=== PATIENT | female | born 1935 | race Caucasian/White ===

== ENCOUNTER → 2016-06-24 | Outpatient (CLI) | payer MEDICARE ==
--- NOTE | 2016-06-24 11:12 | US ---
EXAMINATION TYPE: US abdomen complete DATE OF EXAM: 06/24/2016 9:48 AM COMPARISON: Correlation CT chest 07/12/2012 CLINICAL HISTORY: 81-year-old female R10.13 Epigastric Pain. TECHNIQUE: Multiple sonographic images of the abdomen were obtained. FINDINGS: TECHNOLOGIST NOTES: Extensive midline bowel gas obscuring structures Liver Length: 15.1 cm Gallbladder Wall: 0.2 cm CBD: 0.3 cm Spleen: 8.4 cm Right Kidney: 10.2 x 4.1 x 4.8 cm Left Kidney: 10.6 x 5.1 x 4.9 cm Pancreas: Only a small portion of the pancreatic body is seen. Remainder suboptimally visualized seco ndary to shadowing from bowel gas. Liver: Normal size with homogeneous echotexture. There is a 1 cm cyst in the left hepatic lobe demon strating a single internal septation. Gallbladder: No abnormal gallbladder distention, wall thickening, pericholecystic fluid, or shadowing calculi. CBD: wnl Spleen: wnl Right Kidney: Some contour lobulations. No hydronephrosis. Left Kidney: Some contour lobulations. No hydronephrosis. Upper IVC: wnl Abd Aorta: bifurcation obscured by bowel gas IMPRESSION: 1. A 1 cm minimally complex left hepatic lobe cyst which appears to have been present on the 2013 CT scan. 2. Suboptimal visualization of the pancreas. Otherwise, unremarkable sonographic examination of the a bdomen.
--- NOTE | 2016-06-24 11:18 | US ---
EXAMINATION TYPE: US pelvic complete DATE OF EXAM: 06/24/2016 9:53 AM COMPARISON: NONE CLINICAL HISTORY: 81-year-old female with R10.13 Epigastric Pain. Date of LMP: 81 year old post menopausal patient TECHNIQUE: Transabdominal (TA) FINDINGS: Uterus: Anteverted measuring 7.6 x 2.3 x 3.9 cm Endometrial Stripe: 0.4 cm, within normal limits. Right Ovary: 1.5 x x 0.7 x 0.6 cm for volume of 0.3 mL. Left Ovary: not visualized cm No evident adnexal abnormality or cul-de-sac free fluid. IMPRESSION: 1. A 4 mm thick endometrial stripe, within normal limits. 2. Normal small postmenopausal right ovary. The left ovary could not be visualized. 3. No pelvic free fluid.
== END | disposition home or self-care (01) ==
LOC: RADUSWWP 08:58
PROVIDERS: ATTEND Family Medicine
DX: R10.13 Epigastric pain (principal); Z88.2 Allergy status to sulfonamides
CPT/HCPCS: 76700; 76856

== ENCOUNTER 2019-03-18 10:17 | Inpatient (IN) | payer MEDICARE ==
[2019-03-18] MEDS ORDERED: NITROGLYCERIN OINT 1 INCH/GM PACKET TOPICAL STA (10:26)
--- NOTE | 2019-03-18 10:32 | ED ---
General Adult HPI - General Chief complaint: Fall Stated complaint: chest pain Source: patient, RN/MD, EMS, RN notes reviewed Mode of arrival: EMS Limitations: no limitations - History of Present Illness Initial comments: Patient is a pleasant 83-year-old female presenting to the emergency Department with complaints of fall and chest discomfort. Patient was walking into a rest [employer] when she fell and struck her face. Patient did have nasal surgery just a month ago. Patient is unclear whether or not she may have lost consciousness for a second after she fell. Patient complains of discomfort of her upper teeth and nose. Patient does have a mild headache as well. After the fall patient started developing some pressure in her chest. Discomfort improved with nitro and is currently 5/10. Patient does have some associated dyspnea. No nausea. Patient feels sweaty. No leg pain or leg swelling. No history of similar symptoms previously. No history of cardiac disease. - Related Data Home Medications Medication Instructions Recorded Confirmed Cyanocobalamin (Vitamin B-12) 1,000 mcg PO DAILY 03/18/19 03/18/19 [Vitamin B-12] Multivitamins, Thera [Multivitamin 1 tab PO DAILY 03/18/19 03/18/19 (formulary)] Sinus Miracle 1 tab PO DAILY PRN 03/18/19 03/18/19 Allergies Allergy/AdvReac Type Severity Reaction Status Date / Time Sulfa (Sulfonamide Allergy Anaphylaxis Verified 03/18/19 11:58 Antibiotics) Review of Systems ROS Statement: Those systems with pertinent positive or pertinent negative responses have been documented in the HPI. ROS Other: All systems not noted in ROS Statement are negative. Constitutional: Denies: fever Eyes: Denies: eye pain ENT: Denies: ear pain Respiratory: Reports: dyspnea. Denies: cough Cardiovascular: Reports: chest pain Endocrine: Denies: fatigue Gastrointestinal: Denies: abdominal pain Genitourinary: Denies: dysuria Musculoskeletal: Denies: back pain Skin: Denies: rash Neurological: Reports: as per HPI, headache. Denies: weakness, confusion Past Medical History Past Medical History: No Reported History History of Any Multi-Drug Resistant Organisms: None Reported Additional Past Surgical History / Comment(s): Mastectomy with lymphnode remova right side Past Psychological History: No Psychological Hx Reported Smoking Status: Never smoker Past Alcohol Use History: None Reported Past Drug Use History: None Reported General Exam Limitations: no limitations General appearance: alert, in no apparent distress Head exam: Present: atraumatic, normocephalic Eye exam: Present: normal appearance, PERRL, EOMI. Absent: nystagmus ENT exam: Present: other (Abrasions and tenderness to the nose and upper lip. Teeth are all stable.) Neck exam: Present: normal inspection. Absent: tenderness Respiratory exam: Present: normal lung sounds bilaterally. Absent: chest wall tenderness Cardiovascular Exam: Present: regular rate, normal rhythm Expanded Peripheral pulses: 2+: Radial (R), Radial (L), Dorsalis Pedis (R), Dorsalis Pedis (L) GI/Abdominal exam: Present: soft. Absent: distended, tenderness Extremities exam: Present: normal inspection. Absent: pedal edema, calf tenderness Neurological exam: Present: alert, oriented X3, CN II-XII intact. Absent: motor sensory deficit Psychiatric exam: Present: normal affect, normal mood Skin exam: Present: abrasion (Nose and upper lip) Course Vital Signs 03/18/19 03/18/19 03/18/19 10:20 10:32 10:52 Temperature 97.8 F Pulse Rate 75 71 Respiratory 16 18 Rate Blood Pressure 114/69 140/80 O2 Sat by Pulse 96 100 Oximetry 03/18/19 03/18/19 11:00 11:38 Temperature Pulse Rate 75 76 Respiratory 23 Rate Blood Pressure 136/84 120/79 O2 Sat by Pulse 99 Oximetry - Reevaluation(s) Reevaluation #1: 03/18/19 10:30 Case was discussed with Dr. Velarde, who will come evaluate patient. 03/18/19 10:35 I did review EKG as well as EMS EKGs with Dr. Velarde who agrees there is not concern for STEMI. EKG Findings - EKG Comments: EKG Findings:: Normal sinus rhythm 72. AR 168. QRS 90. QT 400. QTc 438. Left axis. Left anterior fascicular block. Nonspecific ST-T Procedures - Laceration Laceration #1 Consent Obtained: verbal consent Indication: laceration Site: lip Description: linear Depth: simple, single layer Anesthetic Used: lidocaine 1% Amount (mls): 2 Type of Sutures: vicryl Size of Sutures: 5-0 Number of Sutures: 3 Technique: simple, interrupted Patient Tolerated Procedure: well, no complications Medical Decision Making - Medical Decision Making Patient reevaluated and updated. [facility] physician group paged for admission covering for Dr. Mason. Patient is still having some discomfort of her chest and questions if it is just from landing on her chest when she fell. Patient is being held for cardiac evaluation and rule out and monitoring. Patient has not been admitted secondary to any trauma concerns. - Lab Data Result diagrams: 03/18/19 10:28 03/18/19 10: Lab Results 03/18/19 03/18/19 03/18/19 Range/Units 10:28 10:28 10:28 WBC 5.6 (3.8-10.6) k/uL RBC 4.12 (3.80-5.40) m/uL Hgb 13.2 (11.4-16.0) gm/dL Hct 40.2 (34.0-46.0) % MCV 97.5 (80.0-100.0) fL MCH 32.1 (25.0-35.0) pg MCHC 32.9 (31.0-37.0) g/dL RDW 12.7 (11.5-15.5) % Plt Count 275 (150-450) k/uL Neutrophils % 60 % Lymphocytes % 24 % Monocytes % 8 % Eosinophils % 5 % Basophils % 0 % Neutrophils # 3.4 (1.3-7.7) k/uL Lymphocytes # 1.4 (1.0-4.8) k/uL Monocytes # 0.4 (0-1.0) k/uL Eosinophils # 0.3 (0-0.7) k/uL Basophils # 0.0 (0-0.2) k/uL PT 10.1 (9.0-12.0) sec INR 0.9 (<1.2) APTT 23.1 (22.0-30.0) sec Sodium 139 (137-145) mmol/L Potassium 3.9 (3.5-5.1) mmol/L Chloride 108 H (98-107) mmol/L Carbon Dioxide 24 (22-30) mmol/L Anion Gap 7 mmol/L BUN 11 (7-17) mg/dL Creatinine 0.67 (0.52-1.04) mg/dL Est GFR (CKD-EPI)AfAm >90 (>60 ml/min/1.73 sqM) Est GFR (CKD-EPI)NonAf 82 (>60 ml/min/1.73 sqM) Glucose 104 H (74-99) mg/dL Calcium 10.6 H (8.4-10.2) mg/dL Magnesium 2.2 (1.6-2.3) mg/dL Total Bilirubin 0.7 (0.2-1.3) mg/dL AST 20 (14-36) U/L ALT 15 (4-34) U/L Alkaline Phosphatase 80 (38-126) U/L Creatine Kinase 36 (30-135) U/L Troponin I (0.000-0.034) ng/mL Total Protein 6.7 (6.3-8.2) g/dL Albumin 3.8 (3.5-5.0) g/dL 03/18/19 Range/Units 10:28 WBC (3.8-10.6) k/uL RBC (3.80-5.40) m/uL Hgb (11.4-16.0) gm/dL Hct (34.0-46.0) % MCV (80.0-100.0) fL MCH (25.0-35.0) pg MCHC (31.0-37.0) g/dL RDW (11.5-15.5) % Plt Count (150-450) k/uL Neutrophils % % Lymphocytes % % Monocytes % % Eosinophils % % Basophils % % Neutrophils # (1.3-7.7) k/uL Lymphocytes # (1.0-4.8) k/uL Monocytes # (0-1.0) k/uL Eosinophils # (0-0.7) k/uL Basophils # (0-0.2) k/uL PT (9.0-12.0) sec INR (<1.2) APTT (22.0-30.0) sec Sodium (137-145) mmol/L Potassium (3.5-5.1) mmol/L Chloride (98-107) mmol/L Carbon Dioxide (22-30) mmol/L Anion Gap mmol/L BUN (7-17) mg/dL Creatinine (0.52-1.04) mg/dL Est GFR (CKD-EPI)AfAm (>60 ml/min/1.73 sqM) Est GFR (CKD-EPI)NonAf (>60 ml/min/1.73 sqM) Glucose (74-99) mg/dL Calcium (8.4-10.2) mg/dL Magnesium (1.6-2.3) mg/dL Total Bilirubin (0.2-1.3) mg/dL AST (14-36) U/L ALT (4-34) U/L Alkaline Phosphatase (38-126) U/L Creatine Kinase (30-135) U/L Troponin I <0.012 (0.000-0.034) ng/mL Total Protein (6.3-8.2) g/dL Albumin (3.5-5.0) g/dL - Radiology Data Radiology results: report reviewed (Computed tomography scan of the brain shows atrophy. Posttraumatic change is not identified. Air-fluid level right maxillary sinus could be related with sinusitis or posttraumatic. CT facial bones shows no fractures. Possible fullness fossa of rosenmuller. Air-fluid level right maxillary sinus.), image reviewed (Chest x-ray shows no acute process. Hiatal hernia. Cardiac silhouette is mildly enlarged.) Disposition Clinical Impression: Fall, Lip laceration, Chest pain Disposition: ADMITTED IP TO THIS HOSP Is patient prescribed a controlled substance at d/c from ED?: No Referrals: None,Stated [Primary Care Provider] - 1-2 days Decision Time: 12:36
[2019-03-18 10:41] LABS: Basophils % (A) 0 %; Eosinophils # (A) 0.3 k/uL (0-0.7); Eosinophils % (A) 5 %; HCT 40.2 % (34.0-46.0); HGB 13.2 gm/dL (11.4-16.0); Lymphocytes # (A) 1.4 k/uL (1.0-4.8); Lymphocytes % (A) 24 %; MCH 32.1 pg (25.0-35.0); MCHC 32.9 g/dL (31.0-37.0); MCV 97.5 fL (80.0-100.0); Mean Platelet Volume 7.6; Monocytes # (A) 0.4 k/uL (0-1.0); Monocytes % (A) 8 %; Neutrophils # (A) 3.4 k/uL (1.3-7.7); Neutrophils % (A) 60 %; Platelet Count 275 k/uL (150-450); RBC 4.12 m/uL (3.80-5.40); RDW 12.7 % (11.5-15.5); WBC 5.6 k/uL (3.8-10.6)
[2019-03-18 10:50] LABS: ALT 15 U/L (4-34); AST 20 U/L (14-36); African American GFR (CKD) >90 (>60 ml/min/1.73 sqM); Albumin 3.8 g/dL (3.5-5.0); Alkaline Phosphatase 80 U/L (38-126); Anion Gap 7 mmol/L; Blood Urea Nitrogen 11 mg/dL (7-17); Calcium 10.6 mg/dL (8.4-10.2); Carbon Dioxide 24 mmol/L (22-30); Chloride 108 mmol/L (98-107); Creatine Kinase 36 U/L (30-135); Glucose 104 mg/dL (74-99); Magnesium 2.2 mg/dL (1.6-2.3); Non-African American GFR(CKD) 82 (>60 ml/min/1.73 sqM); Potassium 3.9 mmol/L (3.5-5.1); Sodium 139 mmol/L (137-145); Total Bilirubin 0.7 mg/dL (0.2-1.3); Total Protein 6.7 g/dL (6.3-8.2)
--- NOTE | 2019-03-18 10:51 | CT ---
EXAMINATION TYPE: CT brain wo con DATE OF EXAM: 03/18/2019 COMPARISON: INDICATION: Fall with facial trauma DLP: 1373.6 mGycm, Automated exposure control for dose reduction was used. CONTRAST: None CT of the brain is performed utilizing 3 mm thick sections through the posterior fossa and 3 mm thick sections through the remaining calvarium. Study is performed within 24 hours of arrival to the hosp ital. No abnormal hyperdensity is present to suggest an acute intracranial hemorrhage. No mass lesion is evident. No acute infarcts are evident. . Periventricular white matter hypodensity is present, likely on the b asis of chronic white matter ischemic changes. Ventricles and sulci are appropriate for the patient age. There is a small air-fluid level within the right maxillary sinus. Remaining paranasal sinuses and ma stoid air cells are clear. Clinical consideration for acute right maxillary sinusitis is recommended. This could be posttraumatic. No acute fractures are within the [id number] however. Note is made o f hyperostosis frontalis internus, normal variant. IMPRESSIONS: 1. Periventricular white matter ischemic changes and age-related atrophy. 2. Acute posttraumatic change is not identified. 3. Air-fluid level within the right maxillary sinus can be posttraumatic, acute sinusitis is within t he differential.
--- NOTE | 2019-03-18 10:52 | XR ---
EXAMINATION TYPE: XR chest 1V portable DATE OF EXAM: 03/18/2019 COMPARISON: 07/11/2012 HISTORY: Syncope TECHNIQUE: Single frontal view of the chest is obtained. FINDINGS: There is no focal air space opacity, pleural effusion, or pneumothorax seen. There is a la rge hiatal hernia increase in size from the prior. Surrounding atelectasis is seen. The cardiac silh ouette size is mildly enlarged. The osseous structures are intact. IMPRESSION: Increasing size of a large hiatal hernia. No acute cardiopulmonary process.
[2019-03-18 10:58] LABS: INR 0.9 (<1.2); Partial Thromboplastin Time 23.1 sec (22.0-30.0); Prothrombin Time 10.1 sec (9.0-12.0)
--- NOTE | 2019-03-18 11:15 | CT ---
EXAMINATION TYPE: CT facial bones wo con DATE OF EXAM: 03/18/2019 COMPARISON: None HISTORY: Fall with facial trauma CT DLP: 1373.6 mGycm CONTRAST: 0 mL of Isovue 300 The paranasal sinuses are examined in the axial plane at 2 mm thick sections. Reconstructed images i n the coronal plane were obtained. There is dental amalgam scatter artifact. This causes some limitation at this level. There is an air-fluid level within the right maxillary sinus. No maxillary wall fracture is identifie d. Findings could be related to acute sinusitis. There is some mild opacity within the nasal passage. The ethmoid air cells are clear. The sphenoid sinuses are clear. The frontal sinuses are clear. The septum is evaluated. There is septal deviation to the right. The ostiomeatal units are obstructed. Torus tubarius appears normal. The fossa of Rosenmuller on the left appears somewhat full. Consider o utpatient follow-up evaluation with direct visualization. IMPRESSIONS: 1. Air-fluid level within the right maxillary sinus more suspicious for acute sinusitis then trauma, both of which remain within the differential. 2. There may be some fullness of the left fossa of Rosenmuller. Outpatient follow-up with direct visu alization is recommended.
[2019-03-18] MEDS ORDERED: NITROGLYCERIN SL TABS 0.4 MG TAB SUBLINGUAL STA (11:35)
[2019-03-18] MEDS ORDERED: LIDOCAINE 1% INJ 10MG/ML (20 ML MDV) SQ ONE (11:43)
[2019-03-18] MEDS ORDERED: ONDANSETRON 4 MG/2 ML VIAL IVP STA (11:52)
[2019-03-18] MEDS ORDERED: MORPHINE SULFATE 2 MG/ML SYRINGE IVP STA (12:33)
[2019-03-18] MEDS ORDERED: ASPIRIN 81 MG PO STA (12:36)
--- NOTE | 2019-03-18 14:56 | P.CRDCN ---
History of Present Illness History of present illness: HISTORY OF PRESENTING ILLNESS This is a pleasant 83-year-old female past medical history significant for arthritis and GERD. 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 We have been asked to see in consultation for chest pain. She was walking into a restaurant this morning when she tripped over a step and fell forward landing on her face. She suffered significant abrasions to the nose, chin, lip and forehead. She thinks she may have briefly lost consciousness but is not entirely sure. She denies ever having chest pain, dizziness, palpitations or shortness of breath and states she typically quite active. After falling she started feeling a pain in her chest that was described as a pressure. There was no radiation to the arm, back, neck or jaw. There was no associated symptoms. DIAGNOSTICS EKG reveals sinus mechanism with left anterior fasicular block, no acute changes. Chest xray negative for an acute cardiopulmonary process with increasing in size hiatal hernia. CT brain with age related changes with maxillary sinus with air-fluid level suggestive of sinnusitis. Laboratory reviewed, CBC unremarkable, sodium 139, potassium 3.9, creatinine 0.67, magnesium 2.2, cardiac enzymes negative x1. She take no daily cardiac medications. REVIEW OF SYSTEMS At the time of my exam: CONSTITUTIONAL: Denies fever or chills. CARDIOVASCULAR: Complains of pleuritic chest pain. Denies shortness of breath, orthopnea, PND or palpitations. RESPIRATORY: Denies cough. GASTROINTESTINAL: Denies abdominal pain, diarrhea, constipation, nausea or vomiting. MUSCULOSKELETAL: Complains of facial pain. NEUROLOGIC: Denies numbness, tingling or weakness. ENDOCRINE: Denies fatigue, weight change, polydipsia or polyurina. GENITOURINARY: Denies burning, hematuria or urgency with micturation. HEMATOLOGIC: Denies history of anemia or bleeding. PHYSICAL EXAMINATION Blood pressure 137/81 heart rate 84 afebrile and maintaining oxygen saturation on room air. CONSTITUTIONAL: No apparent distress. HEENT: Head is normocephalic. Pupils are equal, round. Sclerae anicteric. Mucous membranes of the mouth are moist. No JVD. No carotid bruit. Abrasions and ecch ymosis noted to the chin, mouth, nose and forehead. CHEST EXAMINATION: Lungs are clear to auscultation. Positive chest wall tenderness is noted on palpation, no pain with deep breathing. HEART EXAMINATION: Regular rate and rhythm. S1, S2 heard. Systolic ejection murmur at the left sternal border, no gallops or rub. ABDOMEN: Soft, non-tender. Positive bowel sounds. EXTREMITIES: 2+ peripheral pulses, no lower extremity edema and no calf tenderness. NEUROLOGIC EXAMINATION: Patient is awake, alert and oriented x3. ASSESSMENT Chest pain, atypical for angina. Likely related to traumatic fall. Mechanical fall Facial abrasions Hiatal hernia PLAN Continue to obtain serial cardiac enzymes to rule out an acute event. Recommend obtaining an echo to assess pericardium. Thank you kindly for this consultation. Nurse Practitioner note has been reviewed, I agree with a documented findings and plan of care. Patient was seen and examined. 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 History of Any Multi-Drug Resistant Organisms: None Reported Past Surgical History: Breast Surgery, Orthopedic Surgery Additional Past Surgical History / Comment(s): R mastectomy with lymph node removals, recent plastic surgery on nose twice to remove skin cancer, R leg fractured in 7 places with surgery and then fractured again and has a nancy, colonoscopy with benign polypectomy. Past Anesthesia/Blood Transfusion Reactions: No Reported Reaction Smoking Status: Former smoker - Past Family History Father Family Medical History: No Reported History Additional Family Medical History / Comment(s): Pt remembers father as healthy. He at the age of 67yr and pt cannot recall cause of . Mother Family Medical History: No Reported History Additional Family Medical History / Comment(s): Mother was healthy and lived to be 87yrs old. Medications and Allergies Home Medications Medication Instructions Recorded Confirmed Type Cyanocobalamin (Vitamin B-12) 1,000 mcg PO DAILY 03/18/19 03/18/19 History [Vitamin B-12] Multivitamins, Thera [Multivitamin 1 tab PO DAILY 03/18/19 03/18/19 History (formulary)] Sinus Miracle 1 tab PO DAILY PRN 03/18/19 03/18/19 History Allergies Allergy/AdvReac Type Severity Reaction Status Date / Time Sulfa (Sulfonamide Allergy Anaphylaxis Verified 03/18/19 11:58 Antibiotics) Physical Exam Vitals: Vital Signs Temp Pulse Pulse Resp BP BP Pulse Ox 03/18/19 13:50 98 03/18/19 13:44 97.9 F 84 18 137/81 98 03/18/19 12:56 98 F 87 16 141/84 98 03/18/19 12:00 77 15 120/79 96 03/18/19 11:38 76 120/79 03/18/19 11:00 75 23 136/84 99 03/18/19 10:52 71 18 140/80 100 03/18/19 10:32 97.8 F 03/18/19 10:20 75 16 114/69 96 Intake and Output 03/17/19 03/18/19 03/18/19 22:59 06:59 14:59 Other: Voiding Method Toilet # Voids 1 Weight 65.771 kg Results 03/18/19 10:28 03/18/19 10:28 Cardiac Enzymes 03/18/19 03/18/19 Range/Units 10:28 10:28 AST 20 (14-36) U/L Troponin I <0.012 (0.000-0.034) ng/mL Coagulation 03/18/19 Range/Units 10:28 PT 10.1 (9.0-12.0) sec APTT 23.1 (22.0-30.0) sec CBC 03/18/19 Range/Units 10:28 WBC 5.6 (3.8-10.6) k/uL RBC 4.12 (3.80-5.40) m/uL Hgb 13.2 (11.4-16.0) gm/dL Hct 40.2 (34.0-46.0) % Plt Count 275 (150-450) k/uL Comprehensive Metabolic Panel 03/18/19 Range/Units 10:28 Sodium 139 (137-145) mmol/L Potassium 3.9 (3.5-5.1) mmol/L Chloride 108 H (98-107) mmol/L Carbon Dioxide 24 (22-30) mmol/L BUN 11 (7-17) mg/dL Creatinine 0.67 (0.52-1.04) mg/dL Glucose 104 H (74-99) mg/dL Calcium 10.6 H (8.4-10.2) mg/dL AST 20 (14-36) U/L ALT 15 (4-34) U/L Alkaline Phosphatase 80 (38-126) U/L Total Protein 6.7 (6.3-8.2) g/dL Albumin 3.8 (3.5-5.0) g/dL Current Medications Generic Name Dose Route Start Last Admin Trade Name Freq PRN Reason Stop Dose Admin Aspirin 325 mg 03/19/19 09:00 Aspirin PO DAILY NIRAJ Nitroglycerin 0.4 mg 03/18/19 12:36 Nitrostat SUBLINGUAL Q5M PRN Chest Pain Nitroglycerin 1 inch 03/18/19 18:00 Nitro-Bid Oint TOPICAL Q6HR NIRAJ Sodium Chloride 10 ml 03/18/19 21:00 Saline Flush IV BID NIRAJ Intake and Output 03/17/19 03/18/19 03/18/19 22:59 06:59 14:59 Other: Voiding Method Toilet # Voids 1 Weight 65.771 kg Patient Weight 03/19/19 06:59 Weight 65.771 kg 03/18/19 10:28 03/18/19 10:28
[2019-03-18] MEDS ORDERED: HEPARIN SOD,PORK IN 0.45% NACL 25,000 UNIT in 0.45% NACL 1 250ML.BAG IV SCH (17:30)
[2019-03-18] MEDS ORDERED: HEPARIN SODIUM,PORCINE 5,000 UNIT/ML 1 ML VIAL IV STA (17:33)
[2019-03-18] MEDS ORDERED: NALOXONE 0.4 MG/ML 1 ML VIAL IV PRN (17:37)
--- NOTE | 2019-03-18 17:39 | P.HPIM ---
History of Present Illness H&P Date: 03/18/19 Chief Complaint: chest pain 83-year-old female with basal cell cancer and no other PMH presents the ED after what appears to be a mechanical fall and chest pain. Patient states that she was walking up an incline in order to enter a store when she went down and fell flat on her face. Patient is unsure if she lost consciousness or not. Patient states that she was confused after the fall for about 3-4 minutes and was unable to stand up. She did experience some lightheadedness prior to her fall. She denied any nausea, vomiting, sweating, palpitations or shortness of b reath.patient denied any bladder or bowel incontinence. She denies any tongue biting. She denies any shaking of extremities. Patient reports facial pain around her nose and chin and teeth at the site of fall. After the fall, she experienced sudden onset pressure-like chest pain. The pain was initially 8 out of 10 in severity but trended down to 3 out of 10 with morphine. Pain is midline chest. Pain does not radiate and there are no alleviating or aggravating factors. Patient denies smoking cigarettes. She denies any headaches, lower extremity edema, nausea or vomiting, fever or chills, cough, shortness of breath, palpitations, changes in urination or bowel habits. She does report a decreased appetite due to symptoms of indigestion that has been ongoing for a number of months. In the ED, she underwent extensive evaluation. Vital signs were initially stable. CBC was negative. Coagulation panel was negative. CMP showed chloride of 108, glucose 104, calcium 10.6. Initial trop onin was less than 0.012 with EKG showing normal sinus rhythm and fascicular block. Brain CT showed no post traumatic changes. CT face showed air-fluid level within the maxillary sinus. Chest x-ray showed large hiatal hernia. Patient is admitted for chest pain, rule out acute coronary syndrome with cardiology on consultation. Review of Systems Pertinent positives and negatives as discussed in HPI, a complete review of systems was performed and all other systems are negative. 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 History of Any Multi-Drug Resistant Organisms: None Reported Past Surgical History: Breast Surgery, Orthopedic Surgery Additional Past Surgical History / Comment(s): R mastectomy with lymph node removals, recent plastic surgery on nose twice to remove skin cancer, R leg fractured in 7 places with surgery and then fractured again and has a nancy, col onoscopy with benign polypectomy. Past Anesthesia/Blood Transfusion Reactions: No Reported Reaction Smoking Status: Former smoker - Past Family History Father Family Medical History: No Reported History Additional Family Medical History / Comment(s): Pt remembers father as healthy. He at the age of 67yr and pt cannot recall cause of . Mother Family Medical History: No Reported History Additional Family Medical History / Comment(s): Mother was healthy and lived to be 87yrs old. Medications and Allergies Home Medications Medication Instructions Recorded Confirmed Type Cyanocobalamin (Vitamin B-12) 1,000 mcg PO DAILY 03/18/19 03/18/19 History [Vitamin B-12] Multivitamins, Thera [Multivitamin 1 tab PO DAILY 03/18/19 03/18/19 History (formulary)] Sinus Miracle 1 tab PO DAILY PRN 03/18/19 03/18/19 History Allergies Allergy/AdvReac Type Severity Reaction Status Date / Time Sulfa (Sulfonamide Allergy Anaphylaxis Verified 03/18/19 11:58 Antibiotics) Physical Exam Vitals: Vital Signs Temp Pulse Pulse Resp BP BP Pulse Ox 03/18/19 15:35 98.3 F 81 18 126/78 95 03/18/19 13:50 98 03/18/19 13:44 97.9 F 84 18 137/81 98 03/18/19 12:56 98 F 87 16 141/84 98 03/18/19 12:00 77 15 120/79 96 03/18/19 11:38 76 120/79 03/18/19 11:00 75 23 136/84 99 03/18/19 10:52 71 18 140/80 100 03/18/19 10:32 97.8 F 03/18/19 10:20 75 16 114/69 96 Intake and Output 03/18/19 03/18/19 03/18/19 06:59 14:59 22:59 Other: Voiding Method Toilet Toilet # Voids 1 Weight 65.771 kg General: [non toxic], [no distress], [appears at stated age] Derm: [warm], [dry] Head: [atraumatic], [normocephalic], [symmetric], [stitches placed over lip], [ecchymosis and abrasions over the nose and face] Eyes: [EOMI], [no lid lag], [anicteric sclera] Mouth: [no lip lesion], [mucus membranes moist] Cardiovascular: [S1S2 reg], [no murmur], [positive posterior tibial pulse bilateral], [nontender to palpation over the chest wall] Lungs: [decreased breath sounds bilateral], [no rhonchi, no rales] , [no acces sondra muscle use] Abdominal: [soft], [ nontender to palpation], [no guarding], [no appreciable organomegaly] Ext: [no gross muscle atrophy], [no edema], [no contractures] Neuro: [ CN II-XI grossly intact], [no focal neuro deficits] Psych: [Alert], [oriented], [appropriate affect] Results CBC & Chem 7: 03/18/19 10:28 03/18/19 10:28 Labs: Abnormal Lab Results - Last 24 Hours (Table) 03/18/19 03/18/19 Range/Units 10:28 16:20 Chloride 108 H (98-107) mmol/L Glucose 104 H (74-99) mg/dL Calcium 10.6 H (8.4-10.2) mg/dL Troponin I 2.820 H* (0.000-0.034) ng/mL Thrombosis Risk Factor Assmnt - Choose All That Apply Any of the Below Risk Factors Present?: Yes Other Risk Factors: Yes Each Risk Factor Represents 2 Points: Malignancy Each Risk Factor Represents 3 Points: Age 75 years or older Other congenital or acquired thrombophilia - If yes, enter type in comment: No Thrombosis Risk Factor Assessment Total Risk Factor Score: 5 Thrombosis Risk Factor Assessment Level: High Risk Assessment and Plan Assessment: Non-ST elevation [place] Fall with possible syncopal episode Hiatal hernia Facial abrasion Her initial troponin was negative but second troponin came back elevated at 2.82. Plans: We'll start heparin drip. Trend troponin/EKG to rule out ACS. Received aspirin in the ED. Telemetry monitoring. Follow echocardiogram. Follow-up cardiology consultation. Move to selective. Mechanical fall versus syncope. Questionable. CT brain and CT face negative for acute change. Plans: Fall precaution. Follow orthostats. Rule out ACS. Follow echocardiogram. Telemetry monitoring. Plans: Continue Protonix. Plans: Follow PCP for removal of stitches. DVT prophylaxis: [heparin drip] Discussed with: [patient] Anticipated discharge: [2-3 days] Anticipated discharge place: [home] A total of [45] minutes was spent on the care of this complex patient more than 50% of the time was spent in counseling and care coordination. Patient names her son Galo decision maker in the case that she can't make d ecisions for herself. Patient will like to remain full code at this time.
[2019-03-18] MEDS: HEPARIN SOD,PORK IN 0.45% NACL 25,000 UNIT in 0.45% NACL 1 250ML.BAG IV SCH (17:53)
[2019-03-18] MEDS ORDERED: NITROGLYCERIN OINT 1 INCH/GM PACKET TOPICAL SCH (18:00)
[2019-03-18] MEDS ORDERED: CLOPIDOGREL 75 MG TAB PO STA (19:18)
[2019-03-18] MEDS: ACETAMINOPHEN TAB 325 MG TAB PO PRN (20:33)
[2019-03-18 23:31] LABS: Creatine Kinase MB 6.5 ng/mL (0.0-2.4)
[2019-03-18 23:49] LABS: Troponin I 3.15 ng/mL (0.000-0.034)
[2019-03-19 06:28] LABS: Cholesterol 185 mg/dL (<200); HDL Cholesterol 45 mg/dL (40-60); LDL Cholesterol,Calculated 128 mg/dL (0-99); Triglycerides 59 mg/dL (<150)
[2019-03-19] MEDS: PANTOPRAZOLE 40 MG TABLET PO SCH (06:49)
[2019-03-19] MEDS: NITROGLYCERIN SL TABS 0.4 MG TAB SUBLINGUAL PRN ×2 (06:57→07:03)
[2019-03-19 07:07] LABS: Partial Thromboplastin Time 47.7 sec (22.0-30.0); Prothrombin Time 10.5 sec (9.0-12.0)
[2019-03-19 07:27] LABS: Glucose,Whole Blood 90 mg/dL (75-99)
[2019-03-19] MEDS ORDERED: HYDROmorphone 0.5 MG/0.5 ML SYRINGE IVP STA (07:30)
[2019-03-19] MEDS ORDERED: ATORVASTATIN 80 MG TAB PO STA (08:08)
--- NOTE | 2019-03-19 08:14 | P.PN ---
Subjective Progress Note Date: 03/19/19 Principal diagnosis: non-ST elevation DC patient was seen and examined. No acute events overnight. Received a page from RN this morning around 7 AM regarding continued chest pain along with diaphoresis and lightheadedness. Her chest pain has not been relieved with nitroglycerin. Stat EKG ordered, unchanged from admission, no ST elevation. Started on heparin drip and loaded with Plavix overnight. Cardiology called by RN, instructed to give Dilaudid 0.5 mg. Patient reports pressure-like chest pain along with shortness of breath. Her pain is 10 out of 10 in severity. Her chest pain is associated with episodes of sweating, shortness of breath and lightheadedness. Vital signs are currently stable. Objective - Vital Signs Vital signs: Vital Signs Temp 98.4 F 03/19/19 03:45 Pulse 80 03/19/19 03:45 Resp 18 03/19/19 03:45 BP 103/56 03/19/19 03:45 Pulse Ox 96 03/19/19 03:45 Intake & Output 03/18/19 03/19/19 03/19/19 18:59 06:59 18:59 Weight 65.771 kg 66.1 kg Other: Voiding Method Toilet Toilet # Voids 1 1 - Exam General: [non toxic], [diaphoretic], [appears at stated age] Derm: [warm], [dry] Head: [atraumatic], [normocephalic], [symmetric], [3 stitches placed over lip], [ecchymosis and abrasions over the nose and face] Eyes: [EOMI], [no lid lag], [anicteric sclera] Mouth: [no lip lesion], [mucus membranes moist] Cardiovascular: [S1S2 reg], [no murmur], [positive DP pulse bilateral], [no ntender to palpation over the chest wall] Lungs: [Decreased breath sounds bilateral], [no rhonchi, no rales] , [no accessory muscle use] Abdominal: [soft], [ nontender to palpation], [no guarding], [no appreciable organomegaly] Ext: [no gross muscle atrophy], [no edema], [no contractures] Neuro: [no focal neuro deficits] Psych: [Alert], [oriented], [appropriate affect] - Labs CBC & Chem 7: 03/18/19 10:28 03/18/19 10:28 Labs: Abnormal Lab Results - Last 24 Hours (Table) 03/18/19 03/18/19 03/18/19 Range/Units 10:28 16:20 22:22 APTT (22.0-30.0) sec Chloride 108 H (98-107) mmol/L Glucose 104 H (74-99) mg/dL Calcium 10.6 H (8.4-10.2) mg/dL CK-MB (CK-2) 6.5 H (0.0-2.4) ng/mL Troponin I 2.820 H* 3.150 H* (0.000-0.034) ng/mL LDL Cholesterol, Calc (0-99) mg/dL 03/19/19 03/19/19 03/19/19 Range/Units 00:14 05:25 05:25 APTT 58.7 H 47.7 H (22.0-30.0) sec Chloride (98-107) mmol/L Glucose (74-99) mg/dL Calcium (8.4-10.2) mg/dL CK-MB (CK-2) (0.0-2.4) ng/mL Troponin I (0.000-0.034) ng/mL LDL Cholesterol, Calc 128 H (0-99) mg/dL Assessment and Plan Assessment: Non-ST elevation [place] Fall with possible syncopal episode Hiatal hernia Facial abrasion Her initial troponin was negative but second troponin came back elevated at 2.82, 3.[address] elevation. Plans: Continue heparin drip. Loaded on Plavix yesterday. Nitroglycerine as needed for chest pain. Continue aspirin. Telemetry monitoring. Follow echocardiogram. Follow-up cardiology consultation. RN discussed with cardiology, Dr. Velarde recommended 0.5 mg Dilaudid IV. I attempted to [employer] Dr. Velarde regarding need for cardiac catheterization, awaiting callback. Mechanical fall versus syncope. Questionable. CT brain and CT face negative for acute change. Possibly related to an STEMI? Plans: Fall precaution. Follow orthostats. Follow echocardiogram. Telemetry monitoring. Management as above. Plans: Continue Protonix. Plans: Follow PCP for removal of stitches. [Patient with elevated troponins without ST elevation. Likely syncopal episode from non-ST elevation DC. Cardiology aware of patient. Awaiting cardiology evaluation for possible cardiac catheterization. Continue heparin drip.]
[2019-03-19] MEDS ORDERED: NITROGLYCERIN-D5W PMX 50 MG in DEXTROSE/WATER 1 250ML.BAG IV SCH (08:15)
[2019-03-19] MEDS: ASPIRIN 81 MG PO SCH (08:23)
[2019-03-19] MEDS ORDERED: FUROSEMIDE 10 MG/ML 4 ML VIAL IV STA (08:33)
--- NOTE | 2019-03-19 08:33 | P.PN ---
Subjective Progress Note Date: 03/19/19 's is a pleasant 83-year-old female who initially presented to the hospital after experiencing a syncopal episode with subsequent fall, she had significant abrasions on her face including the nose chin and lip and forehead. Patient had been seen in consultation by cardiology yesterday, her initial troponin on presentation here have been negative, subsequent troponin back at 2.8 and then 3.1. Her initial EKG showed a normal sinus rhythm with no acute changes, subsequent to that patient has been experiencing what she describes as a midsternal chest pressure and heaviness, shortness of breath and diaphoresis. Subsequent EKG showed normal sinus rhythm with significant ST-T wave changes not ed in the anterior lateral leads. This morning patient was experiencing severe midsternal chest pressure again with shortness of breath and diaphoresis, EKG continued to show significant changes. Patient was given 3 sublingual nitroglycerin and subsequently 0.5 of Dilaudid, the time of my examination she continues to experience mild chest heaviness. A stat echocardiogram with Doppler study has been requested. Patient has also been advised to undergo cardiac catheterization, the risks and the benefits of the procedure were explained to the patient in detail and she is willing to proceed. Objective - Vital Signs Vital signs: Vital Signs Temp 98.4 F 03/19/19 03:45 Pulse 82 03/19/19 08:16 Resp 18 03/19/19 03:45 BP 148/74 03/19/19 08:16 Pulse Ox 97 03/19/19 08:16 Intake & Output 03/18/19 03/19/19 03/19/19 18:59 06:59 18:59 Weight 65.771 kg 66.1 kg Other: Voiding Method Toilet Toilet # Voids 1 1 - Exam PHYSICAL EXAMINATION: GENERAL: 83-year-old female in no acute distress at the time of my examination HEENT: Head is atraumatic, normocephalic. Pupils equal, round. Sclera anicteric. Conjunctiva are clear. Mucous membranes of the mouth are moist. Neck is supple. There is no elevated jugular venous pressure. No carotid bruit is heard. Patient does have significant abrasions to the nose, chin, lip and forehead HEART EXAMINATION: Heart S1, S2 systolic ejection murmur heard . CHEST EXAMINATION: Lungs reveal some fine rales to bilateral bases. ABDOMEN: Soft, nontender. Bowel sounds are heard. No organomegaly noted. EXTREMITIES: 2+ peripheral pulses with no evidence of peripheral edema and no calf tenderness noted. NEUROLOGIC patient is awake, alert and oriented 3 . . - Labs CBC & Chem 7: 03/18/19 10:28 03/18/19 10:28 Labs: Abnormal Lab Results - Last 24 Hours (Table) 03/18/19 03/18/19 03/18/19 Range/Units 10: 16:20 22:22 APTT (22.0-30.0) sec Chloride 108 H (98-107) mmol/L Glucose 104 H (74-99) mg/dL Calcium 10.6 H (8.4-10.2) mg/dL CK-MB (CK-2) 6.5 H (0.0-2.4) ng/mL Troponin I 2.820 H* 3.150 H* (0.000-0.034) ng/mL LDL Cholesterol, Calc (0-99) mg/dL 03/19/19 03/19/19 03/19/19 Range/Units 00:14 05:25 05:25 APTT 58.7 H 47.7 H (22.0-30.0) sec Chloride (98-107) mmol/L Glucose (74-99) mg/dL Calcium (8.4-10.2) mg/dL CK-MB (CK-2) (0.0-2.4) ng/mL Troponin I (0.000-0.034) ng/mL LDL Cholesterol, Calc 128 H (0-99) mg/dL Assessment and Plan Plan: Assessment and plan #1 syncope, evidence of non-ST elevation myocardial infarction #2 facial abrasions secondary to syncope with subsequent fall #3 history of hiatal hernia #4 recent plastic surgery on her nose #5 bilateral breast reconstruction Plan We will obtain a stat echocardiogram with Doppler study and start the patient on IV Nitro drip, give 80 mg stat Lipitor. Patient has received her aspirin this morning. We will also give the patient a stat dose of IV Lasix now. She has been advised to undergo cardiac catheterization urgently, the risks and the benefits were explained to the patient in detail and she is willing to proceed. Further recommendations will be based on these findings and the patient's clinical course. DNP note has been reviewed, I agree with a documented findings and plan of care. Patient was seen and examined.
[2019-03-19 08:37] LABS: Troponin I 1.69 ng/mL (0.000-0.034)
[2019-03-19] MEDS ORDERED: LIDOCAINE 1% INJ 10MG/ML (20 ML MDV) ONE (08:59)
[2019-03-19] MEDS ORDERED: ASPIRIN 325 MG TAB PO SCH (09:00)
[2019-03-19] MEDS ORDERED: VERAPAMIL 2.5 MG/ML 2 ML AMP ONE (09:17)
[2019-03-19] MEDS ORDERED: HEPARIN SODIUM 1,000 UN/ML (10ML VL) ONE (09:17)
[2019-03-19] MEDS ORDERED: IV FLUID CONTINUATION 500 ML IV ONE (09:23)
[2019-03-19] MEDS ORDERED: SODIUM CHLORIDE 0.9% 1,000 ML IV ONE (09:24)
[2019-03-19] MEDS ORDERED: MIDAZOLAM 2 MG/2 ML VIAL IV ONE (09:35)
[2019-03-19] MEDS ORDERED: LIDOCAINE 1% INJ 10MG/ML (20 ML MDV) SQ ONE (09:38)
[2019-03-19] MEDS: VERAPAMIL SYRINGE (5 MG/10 ML) INTRAARTER ONE ×2 (09:39→09:50)
[2019-03-19] MEDS ORDERED: HYDROmorphone 1 MG/ML 1 ML SYRINGE ONE (09:42)
[2019-03-19] MEDS ORDERED: HYDROmorphone 1 MG/ML 1 ML SYRINGE IVP ONE (09:44)
[2019-03-19] MEDS ORDERED: IOPAMIDOL-370 125ML BTL INJ ONE (09:50)
--- NOTE | 2019-03-19 11:21 | CC ---
CARDIAC CATHETERIZATION REPORT DATE OF SERVICE: March 19, 2019 PERFORMING PHYSICIAN: Mark Del Angel MD. PROCEDURE PERFORMED: 1. Selective right and left coronary angiogram. 2. Left heart catheterization. INDICATION: This is a pleasant 83-year-old female patient with a past medical history significant for arthritis, as well as GERD symptoms who was admitted to the observational unit with atypical chest discomfort after she fell. She ruled in for acute [id number] myocardial infarction. Because of that and because she continues to have chest discomfort with EKG changes concerning for ischemic heart disease, a heart catheterization was advised. APPROACH: Right radial artery. COMPLICATION: None. LEVEL OF SEDATION: Moderate with sedation length of 16 minutes. PROCEDURE DESCRIPTION: After obtaining an informed consent, the patient was brought to the cardiac ship laborer. The right radial artery was cannulated using micropuncture technique, the micropuncture wire passed easily. Then I placed a 6-Wallisian sheath in the right radial artery. After that I gave the patient 2 mg of verapamil IA and 6000 units of heparin IV. Selective right and left coronary angiogram performed using JR4 and JL3.5 catheters and both were 5-Wallisian catheters. Left heart catheterization performed using 5-Wallisian pigtail catheter. The procedure was completed without any complication. SELECTIVE CORONARY ANGIOGRAM: 1. The right coronary artery is a large caliber vessel and it is a dominant vessel. The RCA is angiographically normal. Distally bifurcates into PDA and PLV branches and both are angiographically normal. 2. The left main is angiographically normal. It bifurcates into LCX and LAD. 3. The left main is angiographically normal. It bifurcates into LCX, ramus intermedius, and left anterior descending artery. 4. The left circumflex is a large caliber vessel. It is a nondominant vessel and appeared to be angiographically normal. 5. The ramus intermedius appeared to be a large caliber vessel with mild disease in the midportion. 6. The LAD is a large caliber vessel. The proximal LAD appeared to be normal and gives rise into first and second diagonal branches both appeared to be angiographically normal. The mid LAD has a hinge point but angiographically normal. The LAD distally appeared to be normal. HEMODYNAMICS: The LVEDP was almost 2 mmHg without significant gradient across aortic valve. CONCLUSION: 1. Mild nonobstructive coronary artery disease. 2. Low left ventricular end-diastolic pressure. POSTPROCEDURE MANAGEMENT: 1. Follow up on the echocardiogram. 2. IV fluid. 3. Follow up with the patient. MMODL / IJN: [id number] /
[2019-03-19] MEDS ORDERED: ATROPINE SULFATE 0.1 MG/ML 10ML SYRINGE IV PRN (11:29)
[2019-03-19] MEDS ORDERED: ZOLPIDEM 5 MG TAB PO PRN (11:29)
[2019-03-19] MEDS ORDERED: NITROGLYCERIN SL TABS 0.4 MG TAB SUBLINGUAL PRN (11:29)
[2019-03-19] MEDS ORDERED: SODIUM CHLORIDE 0.9% 1,000 ML IV SCH (11:30)
[2019-03-19] MEDS: MAG HYDROX/AL HYDROX/SIMETH 30 ML CUP PO PRN ×2 (12:24→16:21)
[2019-03-19] MEDS: HEPARIN SOD,PORK IN 0.45% NACL 25,000 UNIT in 0.45% NACL 1 250ML.BAG IV SCH (14:57)
--- NOTE | 2019-03-19 16:01 | ECHOF ---
Referral Reason:cp MEASUREMENTS -------- HEIGHT: 167.6 cm WEIGHT: 65.8 kg BP: 103/56 IVSd: 1.1 cm (0.6 - 1.1) LVIDd: 3.2 cm (3.9 - 5.3) LVPWd: 1.1 cm (0.6 - 1.1) IVSs: 1.4 cm LVIDs: 2.3 cm LVPWs: 1.7 cm LAESV Index (A-L): 41.98 ml/m Ao Diam: 2.7 cm (2.0 - 3.7) AV Cusp: 1.9 cm (1.5 - 2.6) LA Diam: 4.4 cm (2.7 - 3.8) MV E Marcell: 0.84 m/s MV DecT: 207 ms MV A Marcell: 1.16 m/s MV E/A Ratio: 0.72 AR PHT: 435 ms RAP: 5.00 mmHg RVSP: 34.42 mmHg FINDINGS -------- Sinus rhythm. This was a technically good study. The left ventricular size is normal. There is borderline concentric left ventricular hypertrophy. Overall left ventricular systolic function is moderately impaired with, an EF between 35 - 40 %. I ncreased Lap Grade II Diastolic Dysfunction. Apical anterior LV wall motion is hypokinetic. Apic al lateral LV wall motion is hypokinetic. Apical inferior LV wall motion is hypokinetic. Apical septum LV wall motion is hypokinetic. The right ventricle is normal in size. LA is severely dilated >40 ml/m2 The right atrial size is normal. Interatrial and interventricular septum intact. The aortic valve is trileaflet and appears structurally normal. There is mild aortic valve sclerosi s. There is moderate aortic regurgitation. There is no evidence of aortic stenosis. Mild mitral annular calcification present. Dnfm-[id number] mitral regurgitation is present. Mild tricuspid regurgitation present. There is mild pulmonary hypertension. The right ventricular systolic pressure, as measured by Doppler, is 34.42mmHg. There is no pulmonic regurgitation present. The aortic root size is normal. IVC Not well visulized. There is no pericardial effusion. CONCLUSIONS -------- 1. Sinus rhythm. 2. This was a technically good study. 3. The left ventricular size is normal. 4. There is borderline concentric left ventricular hypertrophy. 5. Overall left ventricular systolic function is moderately impaired with, an EF between 35 - 40 %. 6. Increased Lap Grade II Diastolic Dysfunction. 7. Apical anterior LV wall motion is hypokinetic. 8. Apical lateral LV wall motion is hypokinetic. 9. Apical inferior LV wall motion is hypokinetic. 10. Apical septum LV wall motion is hypokinetic. 11. The right ventricle is normal in size. 12. LA is severely dilated >40 ml/m2 13. The right atrial size is normal. 14. Interatrial and interventricular septum intact. 15. The aortic valve is trileaflet and appears structurally normal. 16. There is mild aortic valve sclerosis. 17. There is moderate aortic regurgitation. 18. There is no evidence of aortic stenosis. 19. Mild mitral annular calcification present. 20. Gdyt-[id number]-[id number] mitral regurgitation is present. 21. Mild tricuspid regurgitation present. 22. There is mild pulmonary hypertension. 23. The right ventricular systolic pressure, as measured by Doppler, is 34.42mmHg. 24. There is no pulmonic regurgitation present. 25. The aortic root size is normal. 26. IVC Not well visulized. 27. There is no pericardial effusion. RN ORTHOPEDIC: Jessica Maya RDCS
[2019-03-19] MEDS: ACETAMINOPHEN TAB 325 MG TAB PO PRN (16:21)
[2019-03-20] MEDS: PANTOPRAZOLE 40 MG TABLET PO SCH (06:13)
[2019-03-20 06:39] LABS: African American GFR (CKD) >90 (>60 ml/min/1.73 sqM); Non-African American GFR(CKD) 82 (>60 ml/min/1.73 sqM)
[2019-03-20] MEDS: ASPIRIN 81 MG PO SCH (08:42)
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
[2019-03-20] MEDS ORDERED: LISINOPRIL 5 MG TAB PO ONE (12:01)
[2019-03-20] MEDS: METOPROLOL SUCCINATE (ER) 25 MG TAB.ER.24H PO SCH (12:08)
[2019-03-20] MEDS: SPIRONOLACTONE 25 MG TAB PO SCH (12:08)
--- NOTE | 2019-03-20 13:08 | PN ---
PROGRESS NOTE This patient was admitted after history of fall. Because of the recurrent chest pains and EKG changes and abnormal troponin, patient underwent cardiac catheterization yesterday. No significant coronary artery disease was detected. Patient's echocardiogram is suggestive of takotsubo syndrome. Patient is feeling comfortable. Denies any chest pain. Denies any shortness of breath. Blood pressure is 130/73 mmHg, heart rate is 77 per minute. First and second heart sounds are normal. Lungs are clinically clear to auscultation and percussion. We will continue the current medications. The patient will be ambulated. If she is doing better, patient will be able to be discharged home tomorrow. MMODL / IJN: [id number] /
[2019-03-20] MEDS ORDERED: SODIUM CHLORIDE 0.65% NASAL SPRAY 44 ML BTL NASAL PRN (21:00)
[2019-03-21 03:21] VITALS: PULSE 69
[2019-03-21] MEDS: PANTOPRAZOLE 40 MG TABLET PO SCH (06:19)
[2019-03-21 06:28] LABS: African American GFR (CKD) >90 (>60 ml/min/1.73 sqM); Anion Gap 2 mmol/L; Blood Urea Nitrogen 9 mg/dL (7-17); Carbon Dioxide 28 mmol/L (22-30); Chloride 109 mmol/L (98-107); Glucose 94 mg/dL (74-99); Non-African American GFR(CKD) 79 (>60 ml/min/1.73 sqM); Potassium 3.9 mmol/L (3.5-5.1); Sodium 139 mmol/L (137-145)
[2019-03-21 08:00] VITALS: TEMP 98.5
[2019-03-21] MEDS: METOPROLOL SUCCINATE (ER) 25 MG TAB.ER.24H PO SCH (08:06)
[2019-03-21] MEDS: SPIRONOLACTONE 25 MG TAB PO SCH (08:06)
[2019-03-21] MEDS: ACETAMINOPHEN TAB 325 MG TAB PO PRN (08:06)
[2019-03-21] MEDS ORDERED: LISINOPRIL 5 MG TAB PO SCH ×2 (09:00→12:00)
--- NOTE | 2019-03-21 10:52 | P.DS ---
Providers Date of admission: 03/19/19 14:17 Expected date of discharge: 03/21/19 Attending physician: Shayna Hernandez Consults: 03/18/19 12:36 Consult Physician Urgent Consulting Provider: Ismael Velarde Consult Reason/Comments: cp Do you want consulting provider notified?: Yes Primary care physician: [facility] Course: 83-year-old female with basal cell cancer and no other PMH presents the ED after what appears to be a mechanical fall and chest pain. Patient states that she was walking up an incline in order to enter a store when she went down and fell flat on her face. Patient is unsure if she lost consciousness or not. Patient states that she was confused after the fall for about 3-4 minutes and was unable to stand up. She did experience some lightheadedness prior to her fall. She denied any nausea, vomiting, sweating, palpitations or shortness of breath.patient denied any bladder or bowel incontinence. She denies any tongue biting. She denies any shaking of extremities. Patient reports facial pain around her nose and chin and teeth at the site of fall. After the fall, she experienced sudden onset pressure-like chest pain. The pain was initially 8 out of 10 in severity but trended down to 3 out of 10 with morphine. Pain is midline chest. Pain does not radiate and there are no alleviating or aggravating factors. Patient denies smoking cigarettes. She denies any headaches, lower extremity edema, nausea or vomiting, fever or chills, cough, shortness of breath, palpitations, changes in urination or bowel habits. She does report a decreased appetite due to symptoms of indigestion that has been ongoing for a number of months. In the ED, she underwent extensive evaluation. Vital signs were initially stable. CBC was negative. Coagulation panel was negative. CMP showed chloride of 108, glucose 104, calcium 10.6. Initial troponin was less than 0.012 with EKG showing normal sinus rhythm and fascicular block. Brain CT showed no post traumatic changes. CT face showed air-fluid level within the maxillary sinus. Chest x-ray showed large hiatal hernia. Patient is admitted for chest pain, rule out acute coronary syndrome with cardiology on consultation. With regard to her chest pain, patient had initial negative troponin which eventually trended up to 2.82, 3.15. EKG showed no ST elevation. Patient was loaded on Plavix and started on a heparin drip. Cardiology was consulted and recommended a cardiac catheterization. Cardiac catheterization showed mild CAD which did not explain her troponin elevation. Echocardiogram was performed which showed EF 35-40% with borderline concentric LVH and global hypokinesis. 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 She was started on PATRIA inhibitor and beta [place]. Her fall was thought to be related to syncopal episode. Cardiology recommended event monitor on discharge. Patient was seen and examined prior to discharge. No acute events overnight. Chest pain resolved. She denies any shortness of breath or palpitations. No nausea or vomiting. No fever or chills. No more dizziness. General: [non toxic], [no distress], [appears at stated age] Derm: [warm], [dry] Head: [atraumatic], [normocephalic], [symmetric], [3 stitches placed over lip], [ecchymosis and abrasions over the nose and face] Eyes: [EOMI], [no lid lag], [anicteric sclera] Mouth: [no lip lesion], [mucus membranes moist] Cardiovascular: [S1S2 reg], [mild systolic ejection murmur], [positive DP pulse bilateral], [nontender to palpation over the chest wall] Lungs: [Decreased breath sounds bilateral], [no rhonchi, no rales] , [no accessory muscle use] Abdominal: [soft], [ nontender to palpation], [no guarding], [no appreciable organomegaly] Ext: [no gross muscle atrophy], [no edema], [no contractures] Neuro: [no focal neuro deficits] Psych: [Alert], [oriented], [appropriate affect] Nonischemic cardiomyopathy with EF 35-40% Elevated troponin with mild CAD Fall with possible syncopal episode Hiatal hernia Facial abrasion Echocardiogram shows EF 35-40% with borderline concentric LVH and global hypokinesis. Likely related to Takasubo as she has had major stressors over the past year. Plans: Started on lisinopril 5 mg and metoprolol 25 mg by mouth daily. Strict intake and output. Daily weights. Her initial troponin was negative but second troponin came back elevated at 2.82, 3.15, 1.[address] elevation. Cardiac catheterization shows mild CAD. Plans: Continue aspirin and Lipitor along with Metoprolol. Nitroglycerine as needed for chest pain. Telemetry monitoring. Follow-up cardiology consultation. Mechanical fall versus syncope. Questionable. CT brain and CT face negative for acute change. Possibly related to arrhythmia from nonischemic cardiomyopathy? Plans: Fall precaution. Discussed with Cardiology [facility] Mess, patient does not require event monitor, follow up in clinic. Telemetry monitoring. Management as above. Plans: Continue Protonix. Plans: Follow PCP for removal of stitches. [Patient with mild CAD. New diagnosis of nonischemic cardiomyopathy with EF 35- 40%. Dizziness resolved. Ambulating hallway without difficulty. DC today.] Pertinent Studies: brain CT, face CT, echocardiogram Procedures: cardiac catheterization Patient Condition at Discharge: Fair Plan - Discharge Summary Discharge Rx Participant: No New Discharge Prescriptions: New Spironolactone [Aldactone] 25 mg PO DAILY #30 tab Metoprolol Succinate (ER) [Toprol XL] 25 mg PO DAILY #30 tab.er.24h Lisinopril [Zestril] 5 mg PO DAILY@1200 #30 tab Aspirin 81 mg PO DAILY #30 chew Atorvastatin [Lipitor] 40 mg PO HS #30 tab Continue Multivitamins, Thera [Multivitamin (formulary)] 1 tab PO DAILY Sinus Miracle 1 tab PO DAILY PRN PRN Reason: Allergy Symptoms Cyanocobalamin (Vitamin B-12) [Vitamin B-12] 1,000 mcg PO DAILY Discharge Medication List Cyanocobalamin (Vitamin B-12) [Vitamin B-12] 1,000 mcg PO DAILY 03/18/19 [History] Multivitamins, Thera [Multivitamin (formulary)] 1 tab PO DAILY 03/18/19 [History] Sinus Miracle 1 tab PO DAILY PRN 03/18/19 [History] Aspirin 81 mg PO DAILY #30 chew 03/21/19 [Rx] Atorvastatin [Lipitor] 40 mg PO HS #30 tab 03/21/19 [Rx] Lisinopril [Zestril] 5 mg PO DAILY@1200 #30 tab 03/21/19 [Rx] Metoprolol Succinate (ER) [Toprol XL] 25 mg PO DAILY #30 tab.er.24h 03/21/19 [Rx] Spironolactone [Aldactone] 25 mg PO DAILY #30 tab 03/21/19 [Rx] Follow up Appointment(s)/Referral(s): Mrak Del Angel MD [STAFF PHYSICIAN] - 03/29/19 11:15 am (Thursday with [facility]) [facility], [NON-STAFF] - Shayna Hernandez MD [Primary Care Provider] - 03/28/19 1:30 pm (THURSDAY WITH [facility]) Patient Instructions/Handouts: After Radial Heart Catheterization (GEN) Activity/Diet/Wound Care/Special Instructions: diet: Cardiac Follow-up PCP within 3 days of discharge. Follow-up cardiology within 1 week of discharge. Take all medications as advised. Come back to the ED or call 911 for worsening chest pain, shortness of breath, palpitations or dizziness. Discharge Disposition: HOME SELF-CARE
[2019-03-21] MEDS ORDERED: LISINOPRIL 5 MG TAB PO ONE (11:26)
[2019-03-21] MEDS ORDERED: FUROSEMIDE 20 MG TAB PO SCH (11:30)
[2019-03-21 11:47] VITALS: BP 139/76; RESP 16
--- NOTE | 2019-03-21 12:09 | P.PN ---
Subjective Progress Note Date: 03/21/19 's is a pleasant 83-year-old female who initially presented to the hospital after experiencing a syncopal episode with subsequent fall, she had significant abrasions on her face including the nose chin and lip and forehead. Patient had been seen in consultation by cardiology yesterday, her initial troponin on presentation here have been negative, subsequent troponin back at 2.8 and then 3.1. Her initial EKG showed a normal sinus rhythm with no acute changes, subsequent to that patient has been experiencing what she describes as a midsternal chest pressure and heaviness, shortness of breath and diaphoresis. Subsequent EKG showed normal sinus rhythm with significant ST-T wave changes not ed in the anterior lateral leads. This morning patient was experiencing severe midsternal chest pressure again with shortness of breath and diaphoresis, EKG continued to show significant changes. Patient was given 3 sublingual nitroglycerin and subsequently 0.5 of Dilaudid, the time of my examination she continues to experience mild chest heaviness. A stat echocardiogram with Doppler study has been requested. Patient has also been advised to undergo cardiac catheterization, the risks and the benefits of the procedure were explained to the patient in detail and she is willing to proceed. 03/21/2019 Patient was taken to the cardiac catheterization lab where she was found to have mild coronary artery disease, it is felt that the clinical picture suggestive of stress cardiomyopathy. Echocardiogram with Doppler study revealed an ejection fraction of 35-40%. Overall the patient feels well today, she denies any chest discomfort in her breathing is stable. From cardiology's perspective she may be able to be discharged home today to follow-up in the office post discharge. A repeat echocardiogram with Doppler study will be performed 3-4 weeks in the office. Objective - Vital Signs Vital signs: Vital Signs Temp 98.5 F 03/21/19 11:46 Pulse 69 03/21/19 11:46 Resp 16 03/21/19 11:46 BP 139/76 03/21/19 11:46 Pulse Ox 98 03/21/19 11:46 Intake & Output 03/20/19 03/21/19 03/21/19 18:59 06:59 18:59 Intake Total 600 240 Balance 600 240 Weight 65.1 kg Intake: Oral 600 240 Other: Voiding Method Toilet Toilet Toilet # Voids 0 # Bowel Movements 0 - Exam PHYSICAL EXAMINATION: GENERAL: 83-year-old female in no acute distress at the time of my examination HEENT: Head is atraumatic, normocephalic. Pupils equal, round. Sclera anicteric. Conjunctiva are clear. Mucous membranes of the mouth are moist. Neck is supple. There is no elevated jugular venous pressure. No carotid bruit is heard. Patient does have significant abrasions to the nose, chin, lip and forehead HEART EXAMINATION: Heart S1, S2 systolic ejection murmur heard . CHEST EXAMINATION: Lungs reveal some fine rales to bilateral bases. ABDOMEN: Soft, nontender. Bowel sounds are heard. No organomegaly noted. EXTREMITIES: 2+ peripheral pulses with no evidence of peripheral edema and no calf tenderness noted. NEUROLOGIC patient is awake, alert and oriented 3 . . - Labs CBC & Chem 7: 03/18/19 10:28 03/21/19 05:54 Labs: Abnormal Lab Results - Last 24 Hours (Table) 03/21/19 Range/Units 05:54 Chloride 109 H (98-107) mmol/L Assessment and Plan Plan: Assessment and plan #1 syncope, with elevated troponins, cardiac catheterization did not reveal any significant obstructive coronary artery disease. Clinical picture suggestive of stress cardiomyopathy #2 facial abrasions secondary to syncope with subsequent fall #3 history of hiatal hernia #4 recent plastic surgery on her nose #5 bilateral breast reconstruction Plan from cardiology's perspective, the patient may be able to be discharged home today on current medications. We will make her a follow-up appointment in the office post discharge. Obtain outpatient echocardiogram with Doppler study in 3-4 weeks. DNP note has been reviewed, I agree with a documented findings and plan of care. Patient was seen and examined.
[2019-03-21] MEDS ORDERED: ATORVASTATIN 40 MG TAB PO SCH (21:00)
[2019-03-22] MEDS ORDERED: ASPIRIN 81 MG PO SCH (09:00)
== END 2019-03-21 13:44 | disposition home or self-care (01) | DRG 287 ==
LOC: EC 10:17 → 1SOBS 12:36 → 3SCARD 18:28 → OBSVTOIN 03-19 14:17
PROVIDERS: ADMIT Internal Medicine; ATTEND Internal Medicine
PROC: 0CQ0XZZ Repair Upper Lip, External Approach (ICD-10-PCS; 2019-03-18)
PROC: B2111ZZ Fluoroscopy of Multiple Coronary Arteries using Low Osmolar Contrast (ICD-10-PCS; 2019-03-19)
PROC: 4A023N7 Measurement of Cardiac Sampling and Pressure, Left Heart, Percutaneous Approach (ICD-10-PCS; principal; 2019-03-19 08:45)
DX: I51.81 Takotsubo syndrome (principal); I42.9 Cardiomyopathy, unspecified; I25.10 Atherosclerotic heart disease of native coronary artery without angina pectoris; I44.60 Unspecified fascicular block; K44.9 Diaphragmatic hernia without obstruction or gangrene; M19.90 Unspecified osteoarthritis, unspecified site; S01.511A Laceration without foreign body of lip, initial encounter; H26.9 Unspecified cataract; K21.9 Gastro-esophageal reflux disease without esophagitis; R55 Syncope and collapse; Z85.3 Personal history of malignant neoplasm of breast; Z85.828 Personal history of other malignant neoplasm of skin; Z87.891 Personal history of nicotine dependence; Z90.11 Acquired absence of right breast and nipple; Z88.2 Allergy status to sulfonamides; Z87.440 Personal history of urinary (tract) infections; Z87.01 Personal history of pneumonia (recurrent); W10.9XXA Fall (on) (from) unspecified stairs and steps, initial encounter
CPT/HCPCS: 12011; 36415; 70450; 70486; 71045; 80048; 80053; 80061; 82550; 82553; 82565; 83735; 84484; 85025; 85610; 85730; 93005; 93306; 93458; 96374; 96375; 99285

== ENCOUNTER 2019-05-28 01:23 | Emergency (ER) | payer MEDICARE ==
[2019-05-28 01:40] VITALS: TEMP 98.1
[2019-05-28] MEDS ORDERED: METOCLOPRAMIDE 5 MG/ML 2 ML VIAL IVP STA (02:03)
[2019-05-28] MEDS ORDERED: KETOROLAC 30 MG/ML 1 ML VIAL IVP STA (03:05)
[2019-05-28] MEDS ORDERED: diphenhydrAMINE 50 MG/ML 1 ML VIAL IVP STA (03:05)
[2019-05-28 03:44] LABS: Basophils % (A) 0 %; Eosinophils # (A) 0.1 k/uL (0-0.7); Eosinophils % (A) 1 %; Lymphocytes # (A) 1.1 k/uL (1.0-4.8); Lymphocytes % (A) 10 %; MCH 31.2 pg (25.0-35.0); MCHC 31.7 g/dL (31.0-37.0); MCV 98.3 fL (80.0-100.0); Mean Platelet Volume 8.1; Monocytes % (A) 9 %; Neutrophils # (A) 8.7 k/uL (1.3-7.7); Neutrophils % (A) 79 %; Platelet Count 274 k/uL (150-450); RBC 4.17 m/uL (3.80-5.40); RDW 12.9 % (11.5-15.5); WBC 11.1 k/uL (3.8-10.6)
[2019-05-28 03:49] LABS: ALT 19 U/L (4-34); AST 81 U/L (14-36); African American GFR (CKD) >90 (>60 ml/min/1.73 sqM); Albumin 4.3 g/dL (3.5-5.0); Alkaline Phosphatase 84 U/L (38-126); Anion Gap 8 mmol/L; Blood Urea Nitrogen 14 mg/dL (7-17); Calcium 10.7 mg/dL (8.4-10.2); Carbon Dioxide 23 mmol/L (22-30); Chloride 104 mmol/L (98-107); Glucose 102 mg/dL (74-99); Non-African American GFR(CKD) 85 (>60 ml/min/1.73 sqM); Sodium 135 mmol/L (137-145); Total Bilirubin 0.8 mg/dL (0.2-1.3); Total Protein 7.7 g/dL (6.3-8.2)
[2019-05-28 03:58] LABS: Potassium 4.1 mmol/L (3.5-5.1)
[2019-05-28 03:59] LABS: INR 0.9 (<1.2); Prothrombin Time 9.9 sec (9.0-12.0)
[2019-05-28 04:03] LABS: Partial Thromboplastin Time 21.9 sec (22.0-30.0)
--- NOTE | 2019-05-28 04:37 | ED ---
Headache HPI - General Chief Complaint: Headache Stated Complaint: Postop complications Time Seen by Provider: 05/28/19 01:35 Mode of arrival: EMS - History of Present Illness Initial Comments: The patient is an 84-year-old female with past medical history of basal cell cancer which was removed from her nose at [facility]. She states that the procedure was "botched" by the surgeon and she ended up with a significant deformity. She followed up with Dr. Celeste for which he did revise the repair. He took a skin graft from her left ear placed over the left nare. Procedure was performed on . She was given some medications to take after the procedure. States that this afternoon she was using the nitro cream and developed a significant headache afterwards. It made her nauseated and brought her into the emergency room for evaluation. He states that she has never taken nitro before in the past. Unaware of the side effect profile. She denies any blunt head trauma. No fevers or chills. Denies any neck pain. No vision changes. No unilateral numbness or weakness. No speech difficulties. Denies photophobia. There are no other alleviating, precipitating or modifying factors - Related Data Home Medications Medication Instructions Recorded Confirmed Cyanocobalamin (Vitamin B-12) 1,000 mcg PO DAILY 03/18/19 05/28/19 [Vitamin B-12] Multivitamins, Thera [Multivitamin 1 tab PO DAILY 03/18/19 05/28/19 (formulary)] Amoxicillin/Potassium Clav 1 tab PO Q12HR 05/28/19 05/28/19 [Augmentin 875-125 Tablet] Bacitracin Oint 0 applic TOPICAL BID 05/28/19 05/28/19 Nitroglycerin Oint [Nitro-Bid Oint] 1 inch TRANSDERM BID 05/28/19 05/28/19 predniSONE 10 mg PO DAILY 05/28/19 05/28/19 Allergies Allergy/AdvReac Type Severity Reaction Status Date / Time Sulfa (Sulfonamide Allergy Anaphylaxis Verified 05/28/19 01:40 Antibiotics) Review of Systems ROS Statement: Those systems with pertinent positive or pertinent negative responses have been documented in the HPI. ROS Other: All systems not noted in ROS Statement are negative. 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 History of Any Multi-Drug Resistant Organisms: None Reported Past Surgical History: Breast Surgery, Orthopedic Surgery Additional Past Surgical History / Comment(s): R mastectomy with lymph node removals, recent plastic surgery on nose twice to remove skin cancer, R leg f ractured in 7 places with surgery and then fractured again and has a nancy, colonoscopy with benign polypectomy. Past Anesthesia/Blood Transfusion Reactions: No Reported Reaction Past Psychological History: No Psychological Hx Reported Smoking Status: Former smoker Past Alcohol Use History: Occasional Past Drug Use History: None Reported - Past Family History Father Family Medical History: No Reported History Additional Family Medical History / Comment(s): Pt remembers father as healthy. He at the age of 67yr and pt cannot recall cause of . Mother Family Medical History: No Reported History Additional Family Medical History / Comment(s): Mother was healthy and lived to be 87yrs old. General Exam General appearance: alert, in no apparent distress Head exam: Present: atraumatic, normocephalic, normal inspection Eye exam: Present: normal appearance, PERRL, EOMI. Absent: scleral icterus, conjunctival injection, periorbital swelling ENT exam: Present: mucous membranes moist, other (skin flap left nare. Sutures are clean, dry, intact. Only mild oozing of blood. graft has a slight purple coloration to it) Neck exam: Present: normal inspection. Absent: tenderness, meningismus, lymphadenopathy Respiratory exam: Present: normal lung sounds bilaterally. Absent: respiratory distress, wheezes, rales, rhonchi, stridor Cardiovascular Exam: Present: regular rate, normal rhythm, normal heart sounds. Absent: systolic murmur, diastolic murmur, rubs, gallop, clicks GI/Abdominal exam: Present: soft, normal bowel sounds. Absent: distended, tenderness, guarding, rebound, rigid Extremities exam: Present: normal inspection, full ROM, normal capillary refill. Absent: tenderness, pedal edema, joint swelling, calf tenderness Neurological exam: Present: alert, oriented X3, CN II-XII intact Psychiatric exam: Present: normal affect, normal mood Skin exam: Present: warm, dry, intact, normal color. Absent: rash Course Vital Signs 05/28/19 05/28/19 05/28/19 01:33 03:00 05:00 Temperature 98.1 F Pulse Rate 73 75 81 Respiratory 18 18 20 Rate Blood Pressure 191/90 189/87 171/87 O2 Sat by Pulse 98 98 97 Oximetry Medical Decision Making - Medical Decision Making Upon arrival the patient's placed into room 14. It is noted by staff that the patient does have multiple bedbugs crawling on her. Because of this we did block of the room. The patient is taken to the shower. Her belongings are bagged. She is then placed into room 11. Thorough history is performed. I did remove the nitro paste from the patient's nose as I do believe this is causing her headache. She was given a dose of Benadryl, Reglan and Toradol. Laboratory studies were conducted. Sodium mildly low at 135. The patient is reevaluated and states her headache is completely resolved at this time. I did inform her to stop using the Nitropaste and call Dr. Celeste in the morning to let him know of the inability to use the cream. She understood this. She has any new or worsening symptoms she should return to the emergency room. The patient was discharged in stable condition - Lab Data Result diagrams: 05/28/19 03:20 05/28/19 03:20 Lab Results 05/28/19 05/28/19 05/28/19 Range/Units 03:20 03:20 03:20 WBC 11.1 H (3.8-10.6) k/uL RBC 4.17 (3.80-5.40) m/uL Hgb 13.0 (11.4-16.0) gm/dL Hct 41.0 (34.0-46.0) % MCV 98.3 (80.0-100.0) fL MCH 31.2 (25.0-35.0) pg MCHC 31.7 (31.0-37.0) g/dL RDW 12.9 (11.5-15.5) % Plt Count 274 (150-450) k/uL Neutrophils % 79 % Lymphocytes % 10 % Monocytes % 9 % Eosinophils % 1 % Basophils % 0 % Neutrophils # 8.7 H (1.3-7.7) k/uL Lymphocytes # 1.1 (1.0-4.8) k/uL Monocytes # 1.0 (0-1.0) k/uL Eosinophils # 0.1 (0-0.7) k/uL Basophils # 0.0 (0-0.2) k/uL PT 9.9 (9.0-12.0) sec INR 0.9 (<1.2) APTT 21.9 L (22.0-30.0) sec Sodium 135 L (137-145) mmol/L Potassium 4.1 (3.5-5.1) mmol/L Chloride 104 (98-107) mmol/L Carbon Dioxide 23 (22-30) mmol/L Anion Gap 8 mmol/L BUN 14 (7-17) mg/dL Creatinine 0.60 (0.52-1.04) mg/dL Est GFR (CKD-EPI)AfAm >90 (>60 ml/min/1.73 sqM) Est GFR (CKD-EPI)NonAf 85 (>60 ml/min/1.73 sqM) Glucose 102 H (74-99) mg/dL Calcium 10.7 H (8.4-10.2) mg/dL Total Bilirubin 0.8 (0.2-1.3) mg/dL AST 81 H (14-36) U/L ALT 19 (4-34) U/L Alkaline Phosphatase 84 (38-126) U/L Total Protein 7.7 (6.3-8.2) g/dL Albumin 4.3 (3.5-5.0) g/dL Lipase 57 (23-300) U/L Disposition Clinical Impression: Cephalgia, Medication side effect Disposition: HOME SELF-CARE Condition: Stable Instructions (If sedation given, give patient instructions): Acute Headache (ED) Additional Instructions: Please follow-up with Dr. Coyne regarding your symptoms. Stop using the nitro cream. He needs to know that he stopped using this medication. Return to emergency room for any new or worsening symptoms Is patient prescribed a controlled substance at d/c from ED?: No Referrals: Shayna Hernandez MD [Primary Care Provider] - 1-2 days Time of Disposition: 04:37
[2019-05-28 05:47] VITALS: BP 171/87; PULSE 81; RESP 20
== END 2019-05-28 06:19 | disposition home or self-care (01) ==
LOC: EC 01:23
DX: R51 Headache (principal); T46.3X5A Adverse effect of coronary vasodilators, initial encounter; M79.89 Other specified soft tissue disorders; G62.9 Polyneuropathy, unspecified; Z79.899 Other long term (current) drug therapy; Z79.52 Long term (current) use of systemic steroids; Z88.2 Allergy status to sulfonamides; Z85.828 Personal history of other malignant neoplasm of skin; Z85.3 Personal history of malignant neoplasm of breast; Z92.21 Personal history of antineoplastic chemotherapy; Z98.890 Other specified postprocedural states; Z87.891 Personal history of nicotine dependence; Z90.12 Acquired absence of left breast and nipple
CPT/HCPCS: 99284; 96374; 96375 ×2; 36415; 80053; 83690; 85025; 85610; 85730; J1200; J2765; J1885

== ENCOUNTER 2021-04-23 21:43 | Emergency (ER) | payer MEDICARE ==
[2021-04-23] MEDS ORDERED: SODIUM CHLORIDE 0.9% 1,000 ML IV STA ×2 (22:24)
[2021-04-23] MEDS ORDERED: ONDANSETRON 4 MG/2 ML VIAL IVP STA (22:24)
[2021-04-23] MEDS ORDERED: DIAZEPAM 5 MG/ML 2 ML INJ IVP STA (22:46)
[2021-04-23] MEDS ORDERED: PROCHLORPERAZINE INJ 10 MG/2 ML VIAL IVP STA (22:46)
[2021-04-23] MEDS ORDERED: GLUCAGON 1 MG/ML VIAL IVP STA (22:46)
[2021-04-23] MEDS ORDERED: PANTOPRAZOLE 40 MG/10 ML VIAL IVP STA (22:46)
[2021-04-23] MEDS ORDERED: MORPHINE SULFATE 4 MG/ML SYRINGE IVP STA (22:46)
[2021-04-23] MEDS ORDERED: MAG HYDROX/AL HYDROX/SIMETH 30 ML, HYOSCYAMINE ELIXIR 10 ML, LIDOCAINE VISCOUS 2% 10 ML PO STA ×3 (22:46)
--- NOTE | 2021-04-23 23:58 | ED ---
Nausea/Vomiting/Diarrhea HPI - General Chief complaint: Nausea/Vomiting/Diarrhea Stated complaint: vomiting Time Seen by Provider: 04/23/21 21:59 Source: EMS, RN notes reviewed, old records reviewed Mode of arrival: EMS Limitations: no limitations - History of Present Illness Initial comments: This is an 86-year-old female to the emergency room today. Patient's presenting test for evaluation regards to nausea vomiting abdominal pain reflux patient st ates she's having significant gastritis is unable to eat or drink. States when she eats or drinks he significantly has vomiting. Patient was riding grapes when this all began. Patient never prior similar episode is very anxious with these symptoms that she is currently having she did have some vomiting with small fluid scale MD complaint: nausea, vomiting, abdominal pain -: hour(s) Description of Vomiting: food contents, watery Associated Abdominal Pain: Yes Location: epigastric Radiation: none Severity: moderate Severity scale (1-10): 5 Quality: stabbing, sharp Consistency: constant Improves with: none Worsens with: eating Associated Symptoms: nausea/vomiting - Related Data Home Medications Medication Instructions Recorded Confirmed Cyanocobalamin (Vitamin B-12) 1,000 mcg PO DAILY 03/18/19 04/23/21 [Vitamin B-12] Multivitamins, Thera [Multivitamin 1 tab PO DAILY 03/18/19 04/23/21 (formulary)] Atorvastatin [Lipitor] 40 mg PO DAILY 04/23/21 04/23/21 Allergies Allergy/AdvReac Type Severity Reaction Status Date / Time Sulfa (Sulfonamide Allergy Anaphylaxis Verified 04/23/21 23:24 Antibiotics) Review of Systems ROS Statement: Those systems with pertinent positive or pertinent negative responses have been documented in the HPI. ROS Other: All systems not noted in ROS Statement are negative. 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 History of Any Multi-Drug Resistant Organisms: None Reported Past Surgical History: Breast Surgery, Orthopedic Surgery Additional Past Surgical History / Comment(s): R mastectomy with lymph node removals, recent plastic surgery on nose twice to remove skin cancer, R leg fractured in 7 places with surgery and then fractured again and has a nancy, colonoscopy with benign polypectomy. Past Anesthesia/Blood Transfusion Reactions: No Reported Reaction Past Psychological History: No Psychological Hx Reported Smoking Status: Never smoker Past Alcohol Use History: Occasional Past Drug Use History: None Reported - Past Family History Father Family Medical History: No Reported History Additional Family Medical History / Comment(s): Pt remembers father as healthy. He at the age of 67yr and pt cannot recall cause of . Mother Family Medical History: No Reported History Additional Family Medical History / Comment(s): Mother was healthy and lived to be 87yrs old. General Exam - General Exam Comments Initial Comments: Unable tolerate secretions Limitations: no limitations General appearance: alert, in no apparent distress, anxious Head exam: Present: atraumatic, normocephalic, normal inspection Eye exam: Present: normal appearance, PERRL, EOMI. Absent: scleral icterus, conjunctival injection, periorbital swelling ENT exam: Present: normal exam, mucous membranes moist Neck exam: Present: normal inspection. Absent: tenderness, meningismus, lymphadenopathy Respiratory exam: Present: normal lung sounds bilaterally. Absent: respiratory distress, wheezes, rales, rhonchi, stridor Cardiovascular Exam: Present: regular rate, normal rhythm, normal heart sounds. Absent: systolic murmur, diastolic murmur, rubs, gallop, clicks GI/Abdominal exam: Present: soft, normal bowel sounds. Absent: distended, tenderness, guarding, rebound, rigid Extremities exam: Present: normal inspection, full ROM, normal capillary refill. Absent: tenderness, pedal edema, joint swelling, calf tenderness Back exam: Present: normal inspection Neurological exam: Present: alert, oriented X3, CN II-XII intact Psychiatric exam: Present: normal affect, normal mood Skin exam: Present: warm, dry, intact, normal color. Absent: rash Course Vital Signs 04/23/21 04/24/21 04/24/21 21:45 00:41 01:30 Temperature 98.2 F Pulse Rate 75 106 H 88 Respiratory 18 20 18 Rate Blood Pressure 151/76 193/104 188/98 O2 Sat by Pulse 97 96 97 Oximetry 04/24/21 04/24/21 02:06 04:00 Temperature Pulse Rate 79 107 H Respiratory 16 18 Rate Blood Pressure 141/78 144/81 O2 Sat by Pulse 95 98 Oximetry - Reevaluation(s) Reevaluation #1: 04/24/21 05:31 Medical record is reviewed Reevaluation #2: 04/24/21 05:31 Patient is not improved here in the ER still unable to pass any liquids or saliva Reevaluation #3: 04/24/21 05:31 Patient informed of results and questions have been answered - Consultations Consultation #1: Attempt to transfer patient to different facilities but she was unable to be excepted any other hospital Medical Decision Making - Medical Decision Making 86 female to the emergency department for evaluation patient is positive for esophageal foreign body. At this time we cannot do anything for patient's foreign body we will give patient adequate hydration symptom management unable to get foreign body to pass medications here in the ER patient will be discharged home - Lab Data Result diagrams: 04/23/21 22:59 04/23/21 22:59 Lab Results 04/23/21 04/23/21 04/23/21 Range/Units 22:59 22:59 22:59 WBC 10.1 (3.8-10.6) k/uL RBC 4.15 (3.80-5.40) m/uL Hgb 13.5 (11.4-16.0) gm/dL Hct 41.4 (34.0-46.0) % MCV 99.8 (80.0-100.0) fL MCH 32.6 (25.0-35.0) pg MCHC 32.6 (31.0-37.0) g/dL RDW 13.1 (11.5-15.5) % Plt Count 299 (150-450) k/uL MPV 8.2 Neutrophils % 82 % Lymphocytes % 10 % Monocytes % 6 % Eosinophils % 2 % Basophils % 0 % Neutrophils # 8.2 H (1.3-7.7) k/uL Lymphocytes # 1.0 (1.0-4.8) k/uL Monocytes # 0.6 (0-1.0) k/uL Eosinophils # 0.2 (0-0.7) k/uL Basophils # 0.0 (0-0.2) k/uL PT 10.2 (9.0-12.0) sec INR 0.9 (<1.2) APTT 24.9 (22.0-30.0) sec Sodium 140 (137-145) mmol/L Potassium 3.8 (3.5-5.1) mmol/L Chloride 105 (98-107) mmol/L Carbon Dioxide 25 (22-30) mmol/L Anion Gap 10 mmol/L BUN 10 (7-17) mg/dL Creatinine 0.75 (0.52-1.04) mg/dL Est GFR (CKD-EPI)AfAm 84 (>60 ml/min/1.73 sqM) Est GFR (CKD-EPI)NonAf 73 (>60 ml/min/1.73 sqM) Glucose 104 H (74-99) mg/dL Plasma Lactic Acid Tyrone (0.7-2.0) mmol/L Calcium 11.0 H (8.4-10.2) mg/dL Phosphorus 3.2 (2.5-4.5) mg/dL Magnesium 2.3 (1.6-2.3) mg/dL Total Bilirubin 0.6 (0.2-1.3) mg/dL AST 23 (14-36) U/L ALT 17 (4-34) U/L Alkaline Phosphatase 95 (38-126) U/L Troponin I (0.000-0.034) ng/mL NT-Pro-B Natriuret Pep pg/mL Total Protein 7.4 (6.3-8.2) g/dL Albumin 4.3 (3.5-5.0) g/dL Lipase 76 (23-300) U/L 04/23/21 04/23/21 04/23/21 Range/Units 22:59 22:59 22:59 WBC (3.8-10.6) k/uL RBC (3.80-5.40) m/uL Hgb (11.4-16.0) gm/dL Hct (34.0-46.0) % MCV (80.0-100.0) fL MCH (25.0-35.0) pg MCHC (31.0-37.0) g/dL RDW (11.5-15.5) % Plt Count (150-450) k/uL MPV Neutrophils % % Lymphocytes % % Monocytes % % Eosinophils % % Basophils % % Neutrophils # (1.3-7.7) k/uL Lymphocytes # (1.0-4.8) k/uL Monocytes # (0-1.0) k/uL Eosinophils # (0-0.7) k/uL Basophils # (0-0.2) k/uL PT (9.0-12.0) sec INR (<1.2) APTT (22.0-30.0) sec Sodium (137-145) mmol/L Potassium (3.5-5.1) mmol/L Chloride (98-107) mmol/L Carbon Dioxide (22-30) mmol/L Anion Gap mmol/L BUN (7-17) mg/dL Creatinine (0.52-1.04) mg/dL Est GFR (CKD-EPI)AfAm (>60 ml/min/1.73 sqM) Est GFR (CKD-EPI)NonAf (>60 ml/min/1.73 sqM) Glucose (74-99) mg/dL Plasma Lactic Acid Tyrone 1.1 (0.7-2.0) mmol/L Calcium (8.4-10.2) mg/dL Phosphorus (2.5-4.5) mg/dL Magnesium (1.6-2.3) mg/dL Total Bilirubin (0.2-1.3) mg/dL AST (14-36) U/L ALT (4-34) U/L Alkaline Phosphatase (38-126) U/L Troponin I <0.012 (0.000-0.034) ng/mL NT-Pro-B Natriuret Pep 131 pg/mL Total Protein (6.3-8.2) g/dL Albumin (3.5-5.0) g/dL Lipase (23-300) U/L - EKG Data -: EKG Interpreted by Me (EKG is sinus rhythm 74, MA 176 QRS 92 QTC 466) - Radiology Data Radiology results: report reviewed (CT of chest abdomen pelvis is positive for significant fluid filled esophagus), image reviewed Disposition Clinical Impression: Dehydration, Esophageal foreign body, Nausea & vomiting Disposition: HOME SELF-CARE Condition: Good Instructions (If sedation given, give patient instructions): Esophageal Foreign Body (ED) Is patient prescribed a controlled substance at d/c from ED?: No Referrals: Rc Dao MD [Primary Care Provider] - 1-2 days
[2021-04-24] LABS: Albumin 4.3 g/dL (3.5-5.0); Magnesium 2.3 mg/dL (1.6-2.3); Phosphorus 3.2 mg/dL (2.5-4.5); Potassium 3.8 mmol/L (3.5-5.1); Total Bilirubin 0.6 mg/dL (0.2-1.3); Total Protein 7.4 g/dL (6.3-8.2)
[2021-04-24 00:17] LABS: INR 0.9 (<1.2); Partial Thromboplastin Time 24.9 sec (22.0-30.0); Prothrombin Time 10.2 sec (9.0-12.0)
[2021-04-24 00:20] LABS: Basophils % (A) 0 %; Eosinophils # (A) 0.2 k/uL (0-0.7); Eosinophils % (A) 2 %; HCT 41.4 % (34.0-46.0); HGB 13.5 gm/dL (11.4-16.0); Lymphocytes % (A) 10 %; MCH 32.6 pg (25.0-35.0); MCHC 32.6 g/dL (31.0-37.0); MCV 99.8 fL (80.0-100.0); Mean Platelet Volume 8.2; Monocytes # (A) 0.6 k/uL (0-1.0); Monocytes % (A) 6 %; Neutrophils # (A) 8.2 k/uL (1.3-7.7); Neutrophils % (A) 82 %; Platelet Count 299 k/uL (150-450); RBC 4.15 m/uL (3.80-5.40); RDW 13.1 % (11.5-15.5); WBC 10.1 k/uL (3.8-10.6)
--- NOTE | 2021-04-24 00:35 | XR ---
EXAMINATION TYPE: XR chest 1V portable DATE OF EXAM: 04/23/2021 COMPARISON: 03/18/2019 HISTORY: Chest pain TECHNIQUE: Single view FINDINGS: There is no heart failure. There is large hiatal hernia. There are no hilar masses. Thoraci c aorta is atheromatous. Lungs appear clear of consolidation. IMPRESSION: Hiatal hernia. No active cardiopulmonary disease. No change.
[2021-04-24] MEDS ORDERED: LORazepam 2 MG/ML INJ IV STA (01:26)
[2021-04-24] MEDS ORDERED: MORPHINE SULFATE 4 MG/ML SYRINGE IVP STA (01:26)
--- NOTE | 2021-04-24 02:36 | CT ---
EXAMINATION TYPE: CT ChestAbdPelvis w con DATE OF EXAM: 04/24/2021 COMPARISON: Chest CT scan July 2012 HISTORY: Pain and vomiting CT DLP: mGycm Automated exposure control for dose reduction was used. CONTRAST: Performed with IV Contrast, patient injected with 100 mL of Isovue 300. Images obtained from the thoracic inlet to the floor of the pelvis with IV contrast. Heart is enlarged. There is a large hiatal hernia. There is no pericardial effusion. There is no pleu ral effusion. There is some interstitial infiltrate at the lung bases. There is no pneumothorax. Thor acic aorta is intact and there is no aneurysm or dissection. There is right breast implant. Ascending aorta measures 3.2 cm. There is distended fluid filled thoracic esophagus. This could relate to refl ux. Liver spleen pancreas and gallbladder appear intact. The bile ducts are not dilated. The bladder distends smoothly. There is no inguinal hernia. There is no free fluid in the pelvis. The re is fat density in the pelvis with mixed attenuation that could be some inflammatory changes or aty pical lipoma which is between the lower sigmoid colon and the sacrum. This measures 7 cm in diameter. There are numerous sigmoid diverticula. There is no diverticulitis. The thoracic and lumbar vertebra. Intact. There is no compression fracture. The sternum is intact. Jaya ny pelvis is intact. Hip joints appear normal. IMPRESSION: There is sigmoid diverticulosis without diverticulitis. There is presacral predominantly fat density mass. This could be an atypical lipoma. Follow-up is rec ommended to show at least long-term stability. Large hiatal hernia. Mild interstitial infiltrates and atelectasis at the lung bases. Fluid-filled es ophagus suggestive of esophageal dysfunction and reflux.
[2021-04-24 11:58] VITALS: BP 112/73; PULSE 74; RESP 18; TEMP 98.3
== END 2021-04-24 11:58 | disposition home or self-care (01) ==
LOC: EC 21:43
DX: T18.198A Other foreign object in esophagus causing other injury, initial encounter (principal); R11.2 Nausea with vomiting, unspecified; E86.0 Dehydration; K21.9 Gastro-esophageal reflux disease without esophagitis; M19.90 Unspecified osteoarthritis, unspecified site; Z88.2 Allergy status to sulfonamides; Z85.828 Personal history of other malignant neoplasm of skin; X58.XXXA Exposure to other specified factors, initial encounter
CPT/HCPCS: 99285; 96374; 96375 ×6; 96361 ×13; 36415; 93005; 83880; 80053; 83605; 83690; 83735; 84100; 84484; 85025; 85610; 85730; 71045; 71260; 74177; J2060; J2270; J0780; J1610; J3360; J2405; C9113; Q9967

== ENCOUNTER 2021-08-05 16:38 | Emergency (ER) | payer MEDICARE ==
[2021-08-05 16:44] VITALS: RESP 18; TEMP 98.2
[2021-08-05] MEDS ORDERED: RX INFO: IV CONTRAST WAS GIVEN 1 EACH MISC MISCELLANE PRN (17:19)
[2021-08-05] MEDS ORDERED: ONDANSETRON 4 MG/2 ML VIAL IVP STA (17:20)
[2021-08-05] MEDS ORDERED: SODIUM CHLORIDE 0.9% 1,000 ML IV STA (17:20)
[2021-08-05] MEDS ORDERED: PANTOPRAZOLE 40 MG/10 ML VIAL IVP STA (17:22)
[2021-08-05] MEDS ORDERED: MORPHINE SULFATE 4 MG/ML SYRINGE IVP STA (17:23)
[2021-08-05 17:57] LABS: Basophils % (A) 1 %; Eosinophils # (A) 0.2 k/uL (0-0.7); Eosinophils % (A) 3 %; HCT 42.6 % (34.0-46.0); HGB 13.2 gm/dL (11.4-16.0); Lymphocytes # (A) 0.8 k/uL (1.0-4.8); Lymphocytes % (A) 12 %; MCH 31.2 pg (25.0-35.0); MCV 100.7 fL (80.0-100.0); Mean Platelet Volume 7.7; Monocytes # (A) 0.4 k/uL (0-1.0); Monocytes % (A) 6 %; Neutrophils # (A) 5.1 k/uL (1.3-7.7); Neutrophils % (A) 77 %; Platelet Count 245 k/uL (150-450); RBC 4.23 m/uL (3.80-5.40); RDW 13.1 % (11.5-15.5); WBC 6.6 k/uL (3.8-10.6)
[2021-08-05 18:07] LABS: Calcium 10.1 mg/dL (8.4-10.2); Potassium 3.7 mmol/L (3.5-5.1); Total Bilirubin 0.5 mg/dL (0.2-1.3); Total Protein 6.9 g/dL (6.3-8.2)
--- NOTE | 2021-08-05 18:58 | ED ---
ENT HPI - General Chief complaint: ENT Stated complaint: food stuck in esophagus Time Seen by Provider: 08/05/21 16:54 Source: patient, family, RN notes reviewed Mode of arrival: ambulatory Limitations: no limitations - History of Present Illness Initial comments: This is an 86-year-old female who presents to the emergency department for concerns of food being stuck in her throat. States that yesterday she was eating pork and she believes it got stuck in her throat. She is able to breathe and talk without difficulty. States that eating is difficult and she is continuously spitting up, feeling like nothing can get down. She was in the emergency department on 04/23/2021 for a similar problem, however that time she had eaten a grape. She had a CT of the chest, abdomen, and pelvis at that time, which revealed a fluid-filled esophagus suggestive of reflux and esophageal dysfunction. She also had a large hiatal hernia noted. She has not followed up with gastroenterology regarding these findings. States that she does treat the acid reflux but is not sure which medication she takes. Upon initial examination, she is continuously spitting up into the trash can. - Related Data Home Medications Medication Instructions Recorded Confirmed Cyanocobalamin (Vitamin B-12) 1,000 mcg PO DAILY 03/18/19 04/23/21 [Vitamin B-12] Multivitamins, Thera [Multivitamin 1 tab PO DAILY 03/18/19 04/23/21 (formulary)] Atorvastatin [Lipitor] 40 mg PO DAILY 04/23/21 04/23/21 Previous Rx's Medication Instructions Recorded Ondansetron Odt [Zofran Odt] 4 mg PO Q8HR PRN #20 tab 08/05/21 Allergies Allergy/AdvReac Type Severity Reaction Status Date / Time Sulfa (Sulfonamide Allergy Anaphylaxis Verified 04/23/21 23:24 Antibiotics) Review of Systems ROS Statement: Those systems with pertinent positive or pertinent negative responses have been documented in the HPI. ROS Other: All systems not noted in ROS Statement are negative. Constitutional: Denies: fever, chills ENT: Reports: as per HPI. Denies: ear pain Respiratory: Denies: cough Cardiovascular: Denies: chest pain, palpitations Gastrointestinal: Reports: abdominal pain, nausea, vomiting Skin: Denies: rash Neurological: Denies: headache Past Medical History Past Medical History: Cancer, Eye Disorder, GERD/Reflux, Osteoarthritis (OA), Pneumonia Additional Past Medical History / Comment(s): Basal cell skin cancer recently removed from nose, frequent headaches, arthritis mostly in feet and pt thinks she may have neuropathy bilateral feet, has been told her heart beat was alittle bit "off" in the past, UTIs, bladder leakage, R breast cancer with surgery and chemotherapy, start of cataracts bilaterally. History of Any Multi-Drug Resistant Organisms: ESBL Date of last positivie culture/infection: 06/28/21 MDRO Source:: ESBL URINE Past Surgical History: Breast Surgery, Orthopedic Surgery Additional Past Surgical History / Comment(s): R mastectomy with lymph node removals, recent plastic surgery on nose twice to remove skin cancer, R leg fractured in 7 places with surgery and then fractured again and has a nancy, colonoscopy with benign polypectomy. Past Anesthesia/Blood Transfusion Reactions: No Reported Reaction Past Psychological History: No Psychological Hx Reported Smoking Status: Never smoker Past Alcohol Use History: Occasional Past Drug Use History: None Reported - Past Family History Father Family Medical History: No Reported History Additional Family Medical History / Comment(s): Pt remembers father as healthy. He at the age of 67yr and pt cannot recall cause of . Mother Family Medical History: No Reported History Additional Family Medical History / Comment(s): Mother was healthy and lived to be 87yrs old. General Exam Limitations: no limitations General appearance: alert, in no apparent distress Head exam: Present: atraumatic, normocephalic, normal inspection Respiratory exam: Present: normal lung sounds bilaterally. Absent: respiratory distress, wheezes, rales, rhonchi, stridor Cardiovascular Exam: Present: regular rate, normal rhythm, normal heart sounds. Absent: systolic murmur, diastolic murmur, rubs, gallop, clicks GI/Abdominal exam: Present: soft, normal bowel sounds. Absent: distended, tenderness, guarding, rebound, rigid Neurological exam: Present: alert, oriented X3, CN II-XII intact Psychiatric exam: Present: normal affect, normal mood Skin exam: Present: warm, dry, intact, normal color. Absent: rash Course Vital Signs 08/05/21 08/05/21 16:42 20:19 Temperature 98.2 F Pulse Rate 92 87 Respiratory 18 18 Rate Blood Pressure 187/86 138/72 O2 Sat by Pulse 98 97 Oximetry Medical Decision Making - Medical Decision Making This is an 86-year-old female who presents to the emergency department for concerns of food being stuck in the esophagus. CT of the chest again revealed a fluid-filled esophagus representing reflux and/or esophageal dysmotility. The large hiatal hernia was also redemonstrated. Patient advised that the majority of her symptoms are likely due to the large hiatal hernia. Contact information for gastroenterology listed on discharge forms in order for her to follow-up for treatment of the hiatal hernia. After Protonix, morphine, and Zofran, the patient states that she felt better. She was given applesauce, and states that this caused burning in the esophagus and she began to throw it up. Afterwards, she tried to drink water and had no difficulty. Following the water, she was able to eat Jell-O without any problems. She is instructed to avoid large and dry pieces of food for the meantime. Return precautions reviewed in depth, the patient is instructed to return to the emergency department with any new, worsening, or concerning symptoms. Patient verbalized understanding. This case was discussed in detail with the attending ED physician. Presentation, findings, and treatment plan discussed in detail as well. - Lab Data Result diagrams: 08/05/21 17:36 08/05/21 17:36 Lab Results 08/05/21 08/05/21 Range/Units 17:36 17:36 WBC 6.6 (3.8-10.6) k/uL RBC 4.23 (3.80-5.40) m/uL Hgb 13.2 (11.4-16.0) gm/dL Hct 42.6 (34.0-46.0) % MCV 100.7 H (80.0-100.0) fL MCH 31.2 (25.0-35.0) pg MCHC 31.0 (31.0-37.0) g/dL RDW 13.1 (11.5-15.5) % Plt Count 245 (150-450) k/uL MPV 7.7 Neutrophils % 77 % Lymphocytes % 12 % Monocytes % 6 % Eosinophils % 3 % Basophils % 1 % Neutrophils # 5.1 (1.3-7.7) k/uL Lymphocytes # 0.8 L (1.0-4.8) k/uL Monocytes # 0.4 (0-1.0) k/uL Eosinophils # 0.2 (0-0.7) k/uL Basophils # 0.0 (0-0.2) k/uL Sodium 140 (137-145) mmol/L Potassium 3.7 (3.5-5.1) mmol/L Chloride 107 (98-107) mmol/L Carbon Dioxide 26 (22-30) mmol/L Anion Gap 7 mmol/L BUN 8 (7-17) mg/dL Creatinine 0.80 (0.52-1.04) mg/dL Est GFR (CKD-EPI)AfAm 78 (>60 ml/min/1.73 sqM) Est GFR (CKD-EPI)NonAf 68 (>60 ml/min/1.73 sqM) Glucose 92 (74-99) mg/dL Calcium 10.1 (8.4-10.2) mg/dL Total Bilirubin 0.5 (0.2-1.3) mg/dL AST 22 (14-36) U/L ALT 14 (4-34) U/L Alkaline Phosphatase 86 (38-126) U/L Total Protein 6.9 (6.3-8.2) g/dL Albumin 4.0 (3.5-5.0) g/dL - Radiology Data Radiology results: report reviewed, image reviewed Disposition Clinical Impression: Hiatal hernia with GERD Disposition: HOME SELF-CARE Instructions (If sedation given, give patient instructions): Hiatal Hernia (ED), GERD (Gastroesophageal Reflux Disease) (ED) Additional Instructions: Return to the emergency department with any new, worsening, or concerning symptoms. Avoid eating large pieces of food. Call Dr. Torres's office and make an appointment. Prescriptions: Ondansetron Odt [Zofran Odt] 4 mg PO Q8HR PRN #20 tab PRN Reason: Nausea And Vomiting Is patient prescribed a controlled substance at d/c from ED?: No Referrals: Rc Dao MD [Primary Care Provider] - 1-2 days Ai Torres MD [STAFF PHYSICIAN] - 1-2 days
--- NOTE | 2021-08-05 19:01 | CT ---
EXAMINATION TYPE: CT chest w con CT DLP: 185.9 mGycm, Automated exposure control for dose reduction was used. DATE OF EXAM: 08/05/2021 6:30 PM COMPARISON: Chest radiograph from 04/23/2021 Multiple CTs of the chest with most recent on 04/24/2021 . CLINICAL INDICATION:Female, 86 years old with history of dysphagia, pt states food stuck in throat, d ysphagia and chest discomfort TECHNIQUE: Multiple axial images were obtained through the chest following the administration of 100 cc of Isovue 300. FINDINGS: LUNGS/ PLEURA: No evidence of focal consolidation, pneumothorax or pleural effusion. Right middle lob e air cyst is present. AIRWAY: Patent and unremarkable.. HEART: Mildly increased in size. MEDIASTINUM: No gross evidence of adenopathy. There is a large hiatal hernia containing stomach. The esophagus is distended with gas in the superior portion and fluid in the inferior portion. VASCULATURE: No aortic aneurysm. MUSCULOSKELETAL: No acute osseous abnormalities. Remote right-sided rib fractures are present. SOFT TISSUES/LYMPH NODES: Right breast surgically absent breast implants in place and appears intact. LOWER NECK: Left thyroid lobe nodule measuring 16 mm unchanged from prior. UPPER ABDOMEN: Unchanged left hepatic lobe cyst. IMPRESSION: 1. Fluid-filled distal esophagus likely secondary to #2 and represents reflux and/or esophageal dysm otility. 2. Large hiatal hernia.
[2021-08-05 20:35] VITALS: BP 138/72; PULSE 87
== END 2021-08-05 20:35 | disposition home or self-care (01) ==
LOC: EC 16:38
DX: K44.9 Diaphragmatic hernia without obstruction or gangrene (principal); K21.9 Gastro-esophageal reflux disease without esophagitis; Z79.899 Other long term (current) drug therapy
CPT/HCPCS: 36415; 80053; 85025; 71260; 99284; 96374; 96375 ×2; 96361; J2270; J2405; C9113; Q9967

== ENCOUNTER 2021-09-07 18:15 | Emergency (ER) | payer MEDICARE ==
[2021-09-07] MEDS ORDERED: diphenhydrAMINE 50 MG/ML 1 ML VIAL IVP STA (20:44)
[2021-09-07] MEDS ORDERED: SODIUM CHLORIDE 0.9% 500 ML 500 ML IV STA (20:44)
[2021-09-07] MEDS ORDERED: FAMOTIDINE 20 MG/2 ML VIAL IV STA (20:49)
--- NOTE | 2021-09-07 20:55 | ED ---
General Adult HPI - General Chief complaint: Headache Stated complaint: abd pain Time Seen by Provider: 09/07/21 20:40 Source: patient, RN notes reviewed, old records reviewed Mode of arrival: ambulatory Limitations: no limitations - History of Present Illness Initial comments: Well-appearing 86-year-old female presents to the emergency room with complaints of headache, facial pain, nausea and difficulty swallowing. Patient states that she does have history of GERD and she knew she should not have steak but did and now she is having difficulty swallowing. She denies sensation of foreign body. She's been spitting in a cup stating it hurts to swallow. She thinks that this is her GERD acting up. She did take Zofran with no relief. She does take Reglan daily. She states that since taking the Zofran she has now developed facial pain over her sinuses and her teeth. She denies any fevers. Denies any abdominal pain. She states that this is the worst headache she's ever had. -: hour(s) (9) Location: head, neck (throat), abdomen (epigastric) Radiation: non-radiation Severity scale (1-10): 10 Quality: aching, constant Consistency: constant Improves with: none Worsens with: other (swallowing) Associated Symptoms: headaches, nausea/vomiting Treatments Prior to Arrival: other (zofran) - Related Data Home Medications Medication Instructions Recorded Confirmed Cyanocobalamin (Vitamin B-12) 1,000 mcg PO DAILY 03/18/19 04/23/21 [Vitamin B-12] Multivitamins, Thera [Multivitamin 1 tab PO DAILY 03/18/19 04/23/21 (formulary)] Atorvastatin [Lipitor] 40 mg PO DAILY 04/23/21 04/23/21 Previous Rx's Medication Instructions Recorded Ondansetron Odt [Zofran Odt] 4 mg PO Q8HR PRN #20 tab 08/05/21 Allergies Allergy/AdvReac Type Severity Reaction Status Date / Time Sulfa (Sulfonamide Allergy Anaphylaxis Verified 09/07/21 18:36 Antibiotics) Review of Systems ROS Statement: Those systems with pertinent positive or pertinent negative responses have been documented in the HPI. ROS Other: All systems not noted in ROS Statement are negative. 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 History of Any Multi-Drug Resistant Organisms: ESBL Date of last positivie culture/infection: 06/28/21 MDRO Source:: ESBL URINE Past Surgical History: Breast Surgery, Orthopedic Surgery Additional Past Surgical History / Comment(s): R mastectomy with lymph node removals, recent plastic surgery on nose twice to remove skin cancer, R leg fractured in 7 places with surgery and then fractured again and has a nancy, colonoscopy with benign polypectomy. Past Anesthesia/Blood Transfusion Reactions: No Reported Reaction Past Psychological History: No Psychological Hx Reported Smoking Status: Never smoker Past Alcohol Use History: Occasional Past Drug Use History: None Reported - Past Family History Father Family Medical History: No Reported History Additional Family Medical History / Comment(s): Pt remembers father as healthy. He at the age of 67yr and pt cannot recall cause of . Mother Family Medical History: No Reported History Additional Family Medical History / Comment(s): Mother was healthy and lived to be 87yrs old. General Exam Limitations: no limitations General appearance: alert, in no apparent distress Head exam: Present: atraumatic Eye exam: Present: normal appearance. Absent: scleral icterus, conjunctival injection ENT exam: Present: normal exam, normal oropharynx, mucous membranes moist Expanded Mouth exam: Present: tongue normal, tongue elevation. Absent: trismus, muffled voice Throat exam: normal inspection. negative: tonsillar erythema, tonsillomegaly, tonsillar exudate, R peritonsillar mass, L peritonsillar mass Neck exam: Present: normal inspection, full ROM. Absent: tenderness, meningismus, lymphadenopathy Respiratory exam: Present: normal lung sounds bilaterally. Absent: respiratory distress, accessory muscle use Cardiovascular Exam: Present: regular rate, normal rhythm GI/Abdominal exam: Present: soft. Absent: distended, tenderness, guarding, rebound, rigid Extremities exam: Present: normal capillary refill. Absent: tenderness Back exam: Present: normal inspection. Absent: tenderness, CVA tenderness (R), CVA tenderness (L), rash noted Neurological exam: Present: alert, oriented X3, normal gait Psychiatric exam: Present: normal affect, normal mood Skin exam: Present: warm, dry, normal color. Absent: cyanosis, diaphoretic, pallor Course Vital Signs 09/07/21 09/07/21 09/07/21 18:31 20:31 22:44 Temperature 99.5 F 98.9 F Pulse Rate 94 99 Respiratory 16 22 Rate Blood Pressure 189/77 212/96 O2 Sat by Pulse 98 97 Oximetry 09/07/21 23:50 Temperature 98.2 F Pulse Rate 88 Respiratory 20 Rate Blood Pressure 178/88 O2 Sat by Pulse 98 Oximetry Medical Decision Making - Medical Decision Making Patient presents with headache and difficulty swallowing since 11:30 while eating steak. Patient states that she stopped taking her blood pressure medication. She was given labetalol in the emergency room for her hypertension. CT brain shows no intracranial abnormality, no mass or midline shift. There is a large thoracic esophagus with fluid bubble and mixed density at the distal esophagus at the gastroesophageal junction that could possibly be a fluid bolus. There is also a large hiatal hernia. Patient was given glucagon with no relief. She continues to have nausea and spitting up saliva. Airway is open and she has no difficulty in breathing or chest pain. She'll be transferred to [facility] for GI services not available here. She is agreeable to this transfer. Patient was accepted by Dr. Florian. Case was discussed with Dr. Patel. - Lab Data Result diagrams: 09/07/21 21:24 09/07/21 21:24 Lab Results 09/07/21 09/07/21 Range/Units 21:24 21:24 WBC 10.9 H (3.8-10.6) k/uL RBC 4.74 (3.80-5.40) m/uL Hgb 15.2 (11.4-16.0) gm/dL Hct 47.6 H (34.0-46.0) % MCV 100.6 H (80.0-100.0) fL MCH 32.0 (25.0-35.0) pg MCHC 31.8 (31.0-37.0) g/dL RDW 12.8 (11.5-15.5) % Plt Count 297 (150-450) k/uL MPV 8.1 Neutrophils % 86 % Lymphocytes % 8 % Monocytes % 4 % Eosinophils % 1 % Basophils % 0 % Neutrophils # 9.4 H (1.3-7.7) k/uL Lymphocytes # 0.8 L (1.0-4.8) k/uL Monocytes # 0.5 (0-1.0) k/uL Eosinophils # 0.1 (0-0.7) k/uL Basophils # 0.0 (0-0.2) k/uL Sodium 141 (137-145) mmol/L Potassium 4.1 (3.5-5.1) mmol/L Chloride 107 (98-107) mmol/L Carbon Dioxide 23 (22-30) mmol/L Anion Gap 11 mmol/L BUN 10 (7-17) mg/dL Creatinine 0.71 (0.52-1.04) mg/dL Est GFR (CKD-EPI)AfAm >90 (>60 ml/min/1.73 sqM) Est GFR (CKD-EPI)NonAf 78 (>60 ml/min/1.73 sqM) Glucose 121 H (74-99) mg/dL Calcium 10.7 H (8.4-10.2) mg/dL Total Bilirubin 0.5 (0.2-1.3) mg/dL AST 20 (14-36) U/L ALT 13 (4-34) U/L Alkaline Phosphatase 101 (38-126) U/L Total Protein 7.9 (6.3-8.2) g/dL Albumin 4.7 (3.5-5.0) g/dL Disposition Clinical Impression: Esophageal foreign body Disposition: OTHER INSTITUTION NOT DEFINED Condition: Fair Referrals: Rc Dao MD [Primary Care Provider] - 1-2 days Decision Date: 09/07/21 Decision Time: 23:14 - Out of Hospital Transfer - Req. Specs Out of Hospital Transfer - Requested Specifics: Other Emergency Center ([facility])
--- NOTE | 2021-09-07 21:24 | CT ---
EXAMINATION TYPE: CT brain wo con DATE OF EXAM: 09/07/2021 COMPARISON: 03/18/2019 HISTORY: Headache CT DLP: 1137 mGycm Automated exposure control for dose reduction was used. There is some cerebral cortical atrophy. There is mild patchy hypodensity in the periventricular whit e matter. There is no mass effect or midline shift. No sign of intracranial hemorrhage. Calvarium is intact. Skull base is intact. IMPRESSION: Cerebral atrophy and chronic small vessel ischemia. No acute intracranial abnormality. There is progr ession of the white matter changes compared to old exam.
--- NOTE | 2021-09-07 22:04 | CT ---
EXAMINATION TYPE: CT neck chest without con DATE OF EXAM: 09/07/2021 COMPARISON: 04/24/2021 HISTORY: Foreign body, dysphasia, acid reflux CT DLP: 488 mGycm Automated exposure control for dose reduction was used. Orbits to the diaphragm with no contrast. Skull base is intact. There is fairly normal aeration of the paranasal sinuses no evidence of a discr ete neck mass. No evidence of pharyngeal mass. Epiglottis is normal. Thyroid gland is enlarged on the left side with a 2 cm rounded hypodense area that is probably a cyst. There is enlarged thoracic esophagus with fluid level. This extends to the stomach. No obvious esopha geal mass. There is however mixed density material at the distal esophagus that could be food bolus p roducing an obstruction. Heart size is normal. There is hiatal hernia with most of the stomach in a h iatal hernia. Heart size is normal. There is no mediastinal adenopathy. There are no hilar masses. No pericardial e ffusion. The lungs are clear of consolidation. No evidence of a pulmonary mass. No pleural effusion. The thora cic spine is intact. IMPRESSION: Enlarged thoracic esophagus with fluid level. There is mixed density at the distal esophagus at the g astroesophageal junction that could be possible food bolus obstructing the distal esophagus.. No suspicious pulmonary mass. Large hiatal hernia.
[2021-09-07 22:05] LABS: Basophils % (A) 0 %; Eosinophils # (A) 0.1 k/uL (0-0.7); Eosinophils % (A) 1 %; HCT 47.6 % (34.0-46.0); HGB 15.2 gm/dL (11.4-16.0); Lymphocytes # (A) 0.8 k/uL (1.0-4.8); Lymphocytes % (A) 8 %; MCHC 31.8 g/dL (31.0-37.0); MCV 100.6 fL (80.0-100.0); Mean Platelet Volume 8.1; Monocytes # (A) 0.5 k/uL (0-1.0); Monocytes % (A) 4 %; Neutrophils # (A) 9.4 k/uL (1.3-7.7); Neutrophils % (A) 86 %; Platelet Count 297 k/uL (150-450); RBC 4.74 m/uL (3.80-5.40); RDW 12.8 % (11.5-15.5); WBC 10.9 k/uL (3.8-10.6)
[2021-09-07] MEDS ORDERED: GLUCAGON 1 MG/ML VIAL IVP STA (22:20)
[2021-09-07 22:23] LABS: ALT 13 U/L (4-34); AST 20 U/L (14-36); African American GFR (CKD) >90 (>60 ml/min/1.73 sqM); Albumin 4.7 g/dL (3.5-5.0); Alkaline Phosphatase 101 U/L (38-126); Anion Gap 11 mmol/L; Blood Urea Nitrogen 10 mg/dL (7-17); Calcium 10.7 mg/dL (8.4-10.2); Carbon Dioxide 23 mmol/L (22-30); Chloride 107 mmol/L (98-107); Glucose 121 mg/dL (74-99); Non-African American GFR(CKD) 78 (>60 ml/min/1.73 sqM); Potassium 4.1 mmol/L (3.5-5.1); Sodium 141 mmol/L (137-145); Total Bilirubin 0.5 mg/dL (0.2-1.3); Total Protein 7.9 g/dL (6.3-8.2)
[2021-09-07] MEDS ORDERED: LABETALOL 5 MG/ML VIAL MDV IVP STA (23:18)
[2021-09-07 23:53] VITALS: BP 178/88; PULSE 88; RESP 20; TEMP 98.2
== END 2021-09-07 23:59 | disposition other institution (70) ==
LOC: EC 18:15
DX: T18.108A Unspecified foreign body in esophagus causing other injury, initial encounter (principal); Z88.2 Allergy status to sulfonamides
CPT/HCPCS: 36415; 80053; 85025; 70490; 70450; 71250; 99285; 96374; 96375; 96361; J1200; J1610

== ENCOUNTER → 2024-02-12 | Outpatient (CLI) | payer MEDICARE ==
--- NOTE | 2024-02-13 20:07 | US ---
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 TECHNIQUE: Grayscale, color Doppler and spectral Doppler evaluation of the bilateral carotid systems and vertebral arteries. Indirect Doppler criteria was utilized. FINDINGS: EXAM MEASUREMENTS: RIGHT: Peak Systolic Velocity (PSV) cm/sec ----- Right CCA: 90.9 ----- Right ICA: 82.2 ----- Right ECA: 77.1 ICA/CCA ratio: 0.9 RIGHT: End Diastole cm/sec ----- Right CCA: 11.7 ----- Right ICA: 17.5 ----- Right ECA: 0.0 LEFT: Peak Systolic Velocity (PSV) cm/sec ----- Left CCA: 91.2 ----- Left ICA: 92.3 ----- Left ECA: 81.5 ICA/CCA ratio: 1.0 LEFT: End Diastole cm/sec ----- Left CCA: 13.8 ----- Left ICA: 21.1 ----- Left ECA: 81.5 VERTEBRALS (direction of flow): Right Vertebral: Antegrade Left Vertebral: Antegrade Rhythm: Normal BRANCH STORE MANAGER NOTES: Mild homogeneous plaque with no stenosis seen Color Doppler imaging shows patency with blood flow throughout the carotid artery. Spectral waveforms are within normal limits. IMPRESSION: No evidence for hemodynamically significant stenosis. Criteria for Assigning % of Stenosis / Diameter reduction (Estimation based on the indirect measurements of the internal carotid artery velocities (ICA PSV). 1. Normal (no stenosis)=ICA PSV < 125 cm/s: ratio < 2.0: ICA EDV<40 cm/s. 2. Less than 50% stenosis=ICA PSV < 125 cm/s: ratio < 2.0: ICA EDV<40 cm/s. 3. 50 to 69% stenosis=ICA PSV of 125 to 230 cm/s: ration 2.0 ? 4.0: ICA EDV 40-100 cm/s. 4. Greater than 70% stenosis to near occlusion= ICA PSV > 230 cm/s: ratio > 4.0: ICA EDV > 100 cm/s. 5. Near occlusion= ICA PSV velocities may be low or undetectable: variable ratio and ICA EDV. 6. Total occlusion=unable to detect flow. [facility], , 02/13/2024 8:04 PM
--- NOTE | 2024-02-15 11:40 | CA ---
Transthoracic Echo Report Name: Majo Zhnag Age: 88 Gender: F : 1935 Exam Date: 02/12/2024 15:38 Exam Location: [place] [facility] Ht (in): 65 Wt (lb): 133 Ordering Physician: Rc Dao MD Attending/Referring Phys: Rc Dao MD Databases Computer Consultant Lissett Villatoro RDCS Procedure CPT: Indications: I35.1 Nonrheumatic aortic valve insufficien 165.23 Cardiac Hx: Technical Quality: Fair Contrast 1: Total Dose (mL): Contrast 2: Total Dose (mL): MEASUREMENTS (Male / Female) Normal Values 2D ECHO LV Diastolic Diameter PLAX 4.0 cm 4.2 - 5.9 / 3.9 - 5.3 cm LV Systolic Diameter PLAX 3.0 cm IVS Diastolic Thickness 0.9 cm 0.6 - 1.0 / 0.6 - 0.9 cm LVPW Diastolic Thickness 1.0 cm 0.6 - 1.0 / 0.6 - 0.9 cm LV Relative Wall Thickness 0.5 LVOT Diameter 1.7 cm LV Diastolic Volume MOD BP 97.4 cm??? 67 - 155 / 56 - 104 cm??? LV Systolic Volume MOD BP 43.1 cm??? 22 - 58 / 19 - 49 cm??? LV Ejection Fraction MOD BP 55.7 % >= 55 % LV Cardiac Index MOD BP 2214.4 cm???/min???m??? LV Diastolic Volume MOD 4C 94.9 cm??? LV Systolic Volume MOD 4C 41.6 cm??? LV Ejection Fraction MOD 4C 56.1 % LV Cardiac Index MOD 4C 2174.7 cm???/min???m??? LV Diastolic Length 4C 7.0 cm LV Systolic Length 4C 5.9 cm LV Diastolic Volume MOD 2C 93.6 cm??? LV Systolic Volume MOD 2C 43.8 cm??? LV Ejection Fraction MOD 2C 53.2 % LV Cardiac Index MOD 2C 2032.5 cm???/min???m??? LV Diastolic Length 2C 7.5 cm LV Systolic Length 2C 6.0 cm LA Volume 75.3 cm??? 18 - 58 / 22 - 52 cm??? LA Volume Index 45.2 cm???/m??? 16 - 28 cm???/m??? Ascending Aorta Diameter 2.9 cm DOPPLER AV Peak Velocity 174.2 cm/s AV Peak Gradient 12.1 mmHg AV Mean Velocity 109.3 cm/s AV Mean Gradient 5.5 mmHg AV Velocity Time Integral 33.8 cm AI Peak Velocity 415.6 cm/s AI Peak Gradient 69.1 mmHg AI Pressure Half Time 366.5 ms LVOT Peak Velocity 111.7 cm/s LVOT Peak Gradient 5.0 mmHg LVOT Velocity Time Integral 23.0 cm LVOT Stroke Volume 52.0 cm??? LVOT Stroke Volume Index 31.3 ml/m??? LVOT Cardiac Index 2124.1 cm???/min???m??? AV Area Cont Eq vti 1.5 cm??? AV Area Cont Eq pk 1.5 cm??? MV Area PHT 2.8 cm??? Mitral E Point Velocity 45.6 cm/s Mitral A Point Velocity 93.1 cm/s Mitral E to A Ratio 0.5 MV Deceleration Time 267.0 ms TR Peak Velocity 288.9 cm/s TR Peak Gradient 33.4 mmHg Right Atrial Pressure 5.0 mmHg Pulmonary Artery Systolic Pressu 38.4 mmHg Right Ventricular Systolic Press 38.4 mmHg PV Peak Velocity 104.2 cm/s PV Peak Gradient 4.3 mmHg FINDINGS Left Ventricle Left ventricular ejection fraction is estimated at 55 %. Left ventricular cavity size normal. Left ventricular wall thickness normal. No obvious regional wall motion abnormalities. Right Ventricle Normal right ventricular size and function. Mild pulmonary hypertension. Right Atrium Normal right atrial size. Left Atrium Severely increased left atrial volume. Mildly increased left atrial area. Patent foramen ovale. Mitral Valve Structurally normal mitral valve. No evidence for mitral valve prolapse. No mitral stenosis. Mild mitral regurgitation. Aortic Valve Trileaflet aortic valve. Aortic valve sclerosis. No aortic stenosis. Moderate aortic regurgitation. Tricuspid Valve Structurally normal tricuspid valve. No tricuspid stenosis. Mild tricuspid regurgitation. Pulmonic Valve Pulmonic valve not well visualized. No pulmonic stenosis. Trace pulmonic regurgitation. Pericardium No pericardial effusion. Aorta Normal size aortic root and proximal ascending aorta. CONCLUSIONS Normal biventricular systolic function Aortic sclerosis with moderate aortic regurgitation and no stenosis Mild pulmonary hypertension No pericardial effusion Previewed by: Dr. Mark Del Angel MD (Electronically Signed) Final Date: 15 February 2024 11:39
== END | disposition home or self-care (01) ==
LOC: RADUSWWP 14:30
PROVIDERS: ATTEND Internal Medicine
DX: I35.1 Nonrheumatic aortic (valve) insufficiency (principal); I65.23 Occlusion and stenosis of bilateral carotid arteries
CPT/HCPCS: 93306; 93880

== ENCOUNTER → 2024-02-15 | Outpatient (CLI) | payer MEDICARE ==
--- NOTE | 2024-02-19 13:02 | MM ---
Reason for Exam: Screening (asymptomatic). Last mammogram was performed 12 year(s) and 1 month(s) ago. Patient History: Menarche at age 13. First Full-Term at age 21. Postmenopausal. Breast cancer, right. Previous chest radiation therapy. Previous chemotherapy. Reduction on the Left side. Prior Study Comparison: 02/19/2011 Bilateral MG screening mammo w CAD - 2, Unknown. 01/26/2012 Bilateral MG screening mammo w CAD - 2, Unknown. Tissue Density: Left: There are scattered areas of fibroglandular density. Findings: Analyzed By CAD. Left breast: There is no suspicious group of microcalcifications or new suspicious mass. Benign-appearing calcifications left breast. Overall Assessment: Benign, BI-RAD 2 Management: Screening Mammogram of both breasts in [address] [facility] will attempt to contact patient to return for supplemental views and ultrasound if indicated. Patient should continue monthly self-breast exams. A clinical breast exam by your physician is recommended on an annual basis. This exam should not preclude additional follow-up of suspicious palpable abnormalities. Note on Suzy scores and lifetime risk: 1. A Suzy score greater than 3% is considered moderate risk. If this is the case, consider specialist referral to assess eligibility for a risk reducing agent. 2. If overall lifetime risk for the development of breast cancer is 20% or higher, the patient may qualify for future screening with alternating mammogram and breast MRI. [facility], , 02/19/2024 12:59 PM. Electronically signed and approved by: Michael Montoya DO
--- NOTE | 2024-02-21 22:52 | BD ---
EXAMINATION TYPE: Axial Bone Density DATE OF EXAM: 02/15/2024 CLINICAL HISTORY: 88 years old Female. ICD-10 CODE: M85.88 OTH DISRD OF BONE DENSITY , Additional H istory: Height: 64.25 Weight: 141 FRAX RISK QUESTIONS: Alcohol (3 or more units per day): no Family History (Parent hip fracture): no Glucocorticoids (More than 3mos): no (Ex: prednisone, prednisolone, methylprednisolone, dexamethasone, and hydrocortisone). History of Fracture in Adulthood: RT Femur Secondary Osteoporosis: 1. Type 1 Diabetes: no 2. Hyperthyroidism: no 3. Menopause before 45: no 4. Malnutrition: no 5. Chronic liver disease: no Rheumatoid Arthritis: no Current Tobacco Use: RISK FACTORS HISTORY OF: Hip Fracture (Right/Left): no Spine Fracture: no History of Wrist Fracture: no Surgery to Spine/Hip(right/left)/Wrist (right/left): RT hip/femur When: 30 years ago MEDICATIONS: Thyroid Medications: no Osteoporosis Medications: no RT Breast Ca. about 40 years ago *Best history possible EXAM MEASUREMENTS: Bone mineral densitometry was performed using the [employer] System. Bone mineral density as measured about the Lumbar spine is: ----- L1-L4(G/cm2): 0.815 T Score Values are as follows: ----- L1: -3.1 ----- L2: -3.0 ----- L3: -3.1 ----- L4: -3.2 ----- L1-L4: -3.0 Z Score Values are as follows: ----- L1: -1.1 ----- L2: -1.0 ----- L3: -1.1 ----- L4: -1.2 ----- L1-L4: -1.0 BASELINE STUDY Bone mineral density about the L hip (g/cm2): 0.38 T Score values are as follows: -----L Neck: -2.1 -----L Total: -2.1 Z Score values are as follows: -----L Neck: 0.4 -----L Total: 0. BASELINE STUDY FRAX%s: The graph provided illustrates a 20.3% chance for a major osteoporotic fx and a 6.4% chance f or the hips probability for fx in 10 years time. IMPRESSION: Osteoporosis (T Score less than -2.5). There is increased fracture risk and therapy is usually indicated based on age. Re-Screen 1-2 years. NOTE: T-SCORE=SD OF THE YOUNG ADULT MEAN. [facility], , 02/21/2024 10:50 PM
== END | disposition home or self-care (01) ==
LOC: RADMAMWWP 14:03
PROVIDERS: ATTEND Internal Medicine
DX: Z12.31 Encounter for screening mammogram for malignant neoplasm of breast (principal); Z13.820 Encounter for screening for osteoporosis; R92.323 Mammographic fibroglandular density, bilateral breasts; M85.88 Other specified disorders of bone density and structure, other site; I35.1 Nonrheumatic aortic (valve) insufficiency; Z78.0 Asymptomatic menopausal state; Z92.3 Personal history of irradiation
CPT/HCPCS: 77067; 77080

== ENCOUNTER → 2024-03-17 | Outpatient (CLI) | payer MEDICARE ==
--- NOTE | 2024-03-17 10:19 | US ---
EXAMINATION TYPE: US abdomen complete DATE OF EXAM: 03/17/2024 COMPARISON: CT 2021, US 2017 CLINICAL INDICATION: Female, 88 years old with history of R10.9 Acute abdominal pain; Pain. TECHNIQUE: Grayscale and color Doppler imaging of the abdomen was performed. FINDINGS: EXAM MEASUREMENTS: Liver Length: 15.8 cm Gallbladder Wall: 0.43 cm CBD: Obscured Spleen: 7.4 cm Right Kidney: 9.9 x 4.9 x 4.0 cm Left Kidney: 9.9 x 4.0 x 4.7 cm PRODUCTION DISPATCHER NOTES: Exam is limited due to gas. Pancreas: Not well seen. Liver: *Increased echogenicity. Coarse echotexture. Gallbladder: Wall appears thickened. Evidence for sonographic Gastelum's sign: No CBD: Not seen Spleen: Limited due to gas Right Kidney: No hydronephrosis or masses seen Left Kidney: No hydronephrosis or masses seen Upper IVC: wnl Abd Aorta: Proximal segment was obscured. Portions seen appear wnl. IMPRESSION: Prominence of the gallbladder wall measuring up to 4 mm. Correlate for signs and symptoms of cholecys titis. [facility], , 03/17/2024 10:17 AM
== END | disposition home or self-care (01) ==
LOC: RADUSWWP 09:26
PROVIDERS: ATTEND Internal Medicine
DX: K81.9 Cholecystitis, unspecified (principal)
CPT/HCPCS: 76700

== ENCOUNTER → 2024-10-13 | Outpatient (CLI) | payer MEDICARE ==
--- NOTE | 2024-10-13 15:47 | XR ---
EXAMINATION TYPE: XR chest 2V DATE OF EXAM: 10/13/2024 3:41 PM COMPARISON: Chest radiographs from 04/23/2021. CLINICAL INDICATION: Female, 89 years old with history of R06.02 SOB; [facility] TECHNIQUE: XR chest 2V Frontal and lateral views of the chest. FINDINGS: Lungs/Pleura: There is no evidence of pleural effusion, focal consolidation, or pneumothorax. Pulmonary vascularity: Unremarkable. Heart/mediastinum: Cardiomediastinal silhouette is unremarkable. Moderate hiatal hernia. Musculoskeletal: No acute osseous pathology. IMPRESSION: 1. No acute cardiopulmonary disease/process. 2. Moderate hiatal hernia. [facility], , 10/13/2024 3:44 PM
== END | disposition home or self-care (01) ==
LOC: RADXRMAIN 15:13
PROVIDERS: ATTEND Internal Medicine
DX: K44.9 Diaphragmatic hernia without obstruction or gangrene (principal)
CPT/HCPCS: 71046